=== PATIENT | male | born 1965 | race Caucasian/White ===

== ENCOUNTER 2016-11-24 11:56 | Inpatient (IN) ==
[2016-11-24] MEDS ORDERED: fentaNYL 100 MCG/2 ML VIAL IV STA (12:28)
[2016-11-24] MEDS ORDERED: ONDANSETRON 4 MG/2 ML VIAL IV STA (12:28)
--- NOTE | 2016-11-24 12:37 | Emergency Department Note ---
Marty Hirsch Gwan, am scribing for, and in the presence of, Jhony Menard MD 12:32 . Sailaja Hirsch James D, MD, personally performed the services described in this documentation, ascribed by Saurabh Ferguson in my presence, and it is both accurate and complete 237 . Arrival - Arrival Chief Complaint: Wound/Laceration Stated Complaint: wound ED Nursing Triage Note: Brought in by EMS--patient has chronic sacral decubitus ulcers, states he "felt a pop" last night. Moderate purulent drainage noted to wound. Mode of Arrival: Stretcher Limitations: No Limitations Source: Patient, Old Records Reviewed, RN Notes Reviewed - History of Present Illness HPI Narrative: Patient is a 51 y/o male, with a hx of T12/ L1 paraplegic, who presents to the ED via EMS with a c/o moderate purulent draining decubitus ulcer. Patient stated that he felt a "pop" and that it felt as if he had drainage but was unable to see any drainage on his pad. He confirmed that Dr. Lu performed his surgeries. Patient is followed by Dr. Hollingsworth. During exam, it was determined that has a significant amount of drainage and an abscess to the Perirectal area. Onset (ago): hour(s) Consistency: constant Severity: moderate Allergies/Adverse Reactions: Allergies Allergy/AdvReac Type Severity Reaction Status Date / Time Sulfa (Sulfonamide AdvReac Intermediate Nose Bleed Verified 04/06/16 07:11 Antibiotics) Home Medications: Home Medications Medication Instructions Recorded Confirmed Type HYDROcodone/ACETAMIN 7.5-325 1 tablet PO Q4H PRN 04/05/16 11/24/16 History [[place] 7.5-325] clonazePAM [Clonazepam] 1 mg PO BEDTIME 04/05/16 11/24/16 History Review of System - Review of System 12 point system: reviewed and no additional remarkable complaints except as stated - Review of System Constitutional: Absent: chills, fever Eyes: Absent: discharge, pain Head/Ears/Nose/Throat: Absent: earache Respiratory: Absent: cough Cardiovascular: Absent: chest pain Medical,Surgical,& Family Hx - Medical History Cardio: History of: Hypertension, PVD No history of: CAD, Cardiovascular Problems Psychological: History of: Depression No history of: Anxiety Disorders Neurology: No history of: Seizures Endocrine: No history of: Diabetes Mellitus (IDDM), Thyroid Disorder Respiratory: No history of: COPD Genitourinary: History of: Recurring Urinary Tract Infections (conte cath) Gastrointestinal: History of: GI Problems (colostomy) Musculoskeletal: History of: Amputation (bilateral AKA), Back/Neck Problems (T- 12 L-1 Fx paraplegic) Hematology: History of: Anemia No history of: Blood Disorders Other: History of: Miscellaneous Medical Problems (T12-L1 paraplegia) - Surgical History Thoracic Surgeries: Patient denies;: Organ Transplant Abdominal Surgeries: Surgical HX of: Abdominal Surgery, Hernia Repair Patient denies: Appendectomy, Cholecystectomy Orthopedic Surgeries: Surgical HX of;: Orthopedic Surgery (rt hip decortication) , Spinal Surgery - Family History Family History: Reports;: Family Diabetes (brother), Family Hypertension - Social History Smoking Status: Never smoker Frequency of Alcohol Use: None Type of Drug Use: None Exam Physical Examination: GENERAL: This is a white male with T12/L1 parapalegic. VITAL SIGNS: HEENT: Head is normocephalic and atraumatic. Pupils are equally round and reactive to light. Extraocular movement are intact. Oropharynx is benign with moist mucous membranes. NECK: Neck is soft and supple without tenderness. There are no masses. There is no lymphadenopathy. LUNGS: Lungs are clear to auscultation bilaterally. Chest rises symmetrically. There is no chest wall tenderness. CV: Heart is regular rate and rhythm without murmurs, rubs, or gallops. ABDOMEN: Abdomen is soft, non-tender to palpation. There are no abnormal masses palpated. There is no organomegaly. Bowel sounds are present and active. SKIN: Skin is warm and dry. No rash. EXTREMITIES: Patient has full range of motion without tenderness. There is no pedal edema. NEUROLOGIC: Awake, alert, and oriented x4. Cranial nerves II through XII are grossly intact. There are no motorsensory deficits. PSYCHIATRIC: Normal affect. Normal mood. Patient has a right hip disarticulation and right BKA with a obvious perirectal abscess with purulent drainage. Vital Signs: Vital Signs Temperature 98.2 F 11/24/16 12:00 Pulse Rate 106 H 11/24/16 12:00 Respiratory Rate 18 11/24/16 12:00 Blood Pressure 126/75 11/24/16 12:00 O2 Sat by Pulse Oximetry 97 11/24/16 12:00 Course Course Narrative: Patient will be referred to Dr. Link while in ED. Patient was administered Zosyn while in ED after cultures were collected. Results - Labs CBC & BMP: 11/24/16 12:42 11/24/16 12:42 Lab Results: I have reviewed the patients labs Labs: Laboratory Tests 11/24/16 12:42 WBC 8.5 RBC 4.05 Hgb 10.0 L Hct 33.1 L MCV 81.7 L MCH 25 L MCHC 30.2 L Plt Count 431 H MPV 8.7 L Lymph % (Auto) 20.4 L Laboratory Tests 11/24/16 12:42 Sodium 137 Potassium 4.6 Chloride 109 H Carbon Dioxide 22 BUN 23 H Creatinine 1.20 Calcium 8.4 L ALT 10 L Albumin 2.2 L Globulin 5.5 H Albumin/Globulin Ratio 0.4 L - EKG EKG results: interpreted by ERMD - Impressions EKG: Normal sinus rhythm with rate of 95, T-wave inversion anteriorly and laterally with inverted T waves possibly ischemic change. Normal axis. - Diagnostic Findings Procedure: Chest x-ray: image reviewed by me (Elevated left hemidiaphragm, no infiltrate, no pleural effusions.) Disposition Clinical Impression: Perirectal abscess, T12 paraplegia, Nicotine addiction, Sacral decubitus ulcer , stage III Case discussed with: patient Disposition: Still a Patient Condition: Stable Time of Disposition: 12:38
--- NOTE | 2016-11-24 12:46 | XRay Report ---
Exam: XR chest 1V portable Date: 11/24/2016 12:26 PM Indication: Paraplegia Comparison: 03/22/2016 Technical: AP portable Findings: There is abnormal of the left-sided PICC line. There is elevation left hemidiaphragm. No obvious consolidations present. Mild thickening of the minor fissure is present. Mediastinum is otherwise intact. Mild dextroscoliosis and surgical changes in the lower thoracolumbar junction. Impression: 1. Removal of the left-sided PICC line 2. Minimal thickening of the minor fissure which is chronic 3. Resolution of atelectatic change infiltrate or effusion left base. 4. Previous surgery thoracolumbar junction with metallic plates and screws suspected PROCEDURE INTERPRETED AT [facility] DEPARTMENT OF RADIOLOGY Final Report Signed by: Dr. Sergey Russell
[2016-11-24 12:51] LABS: Basophils % 0.2 % (0.0-0.8); Eosinophils # 0.1 10*3/uL (0.0-0.87); Eosinophils % 0.9 % (0.00-10.9); Hematocrit 33.1 VOL% (42.0-52.0); Immature Granulocytes % 0.6 %; Immature Granulocytes Absolute 0.05 #; Lymphocytes # 1.7 10*3/uL (1.4-4.0); Lymphocytes % 20.4 % (21.2-54.2); Mean Corpuscular HGB Conc 30.2 GM/DL (32-36); Mean Corpuscular Hemoglobin 25 PG (27-34); Mean Corpuscular Volume 81.7 FL (87-102); Mean Platelet Volume 8.7 FL (9.6-12.0); Monocytes # 0.4 10*3/uL (0.11-0.8); Monocytes % 4.7 % (1.7-12.7); Neutrophils # 6.2 10*3/uL (1.4-7.4); Neutrophils % 73.2 % (38.7-73.9); Platelet Count 431 T/CUMM (130-400); Red Blood Count 4.05 MC/CUMM (3.8-5.5); Red Cell Distribution Width 16.4 % (9.3-17.3); White Blood Count 8.5 T/CUMM (4-12)
--- NOTE | 2016-11-24 12:59 | EKG Report ---
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
[2016-11-24] MEDS ORDERED: PIPERACILLIN/TAZOBACTAM 3,375 MG in SODIUM CHLORIDE 0.9% 100 ML IV STA (13:09)
[2016-11-24] MEDS ORDERED: PIPERACILLIN/TAZOBACTAM 3,375 MG VIAL IV ONE (13:13)
[2016-11-24] MEDS ORDERED: ONDANSETRON 4 MG/2 ML VIAL ONE (13:13)
[2016-11-24] MEDS ORDERED: fentaNYL 100 MCG/2 ML VIAL ONE (13:13)
[2016-11-24] MEDS: SODIUM CHLORIDE 0.9% 1,000 ML IV SCH (13:18)
[2016-11-24 13:25] LABS: Alanine Aminotransferase 10 U/L (16-61); Albumin 2.2 G/DL (3.4-5.0); Alkaline Phosphatase 108 U/L (45-117); Aspartate Amino Transferase 7 U/L (0-37); Bilirubin,Total < 0.39 MG/DL (0.2-1.0); Blood Urea Nitrogen 23 MG/DL (7-18); Calcium 8.4 MG/DL (8.5-10.1); Glucose 86 MG/DL (74-106); Osmolality,Calculated 275.8 MOS/KG (273-304); Potassium 4.6 MMOL/L (3.5-5.1); Sodium 137 MMOL/L (136-145); Total Protein 7.7 G/DL (6.4-8.3)
--- NOTE | 2016-11-24 13:32 | General Surg History&Physical ---
Assessment and Plan - Time spent with patient Time spent with patient: Greater than 30 minutes (1) Decubitus ulcer, stage 4 with infection Status: Acute Assessment and plan: Impression: Right ischial decubitus ulcer stage IV with drainage Plan: Surgical debridement Current Visit: No (2) Paraplegia Status: Chronic Assessment and plan: Impression: Paraplegia Stable Current Visit: No (3) History of disarticulation of left hip Status: Acute Assessment and plan: Hip disarticulation with flap closure Current Visit: Yes (4) History of disarticulation of right hip Status: Acute Assessment and plan: Impression hip disarticulation with flap closure Current Visit: Yes History of Present Illness Chief complaint: Initial ulcer draining clear looking fluid History of present illness: Mr. Tate is a 51 year old male white who is been a paraplegic came in at one point with significant peripheral vascular disease from smoking as well as necrotizing fasciitis. He apparently has undergone a bilateral hip disarticulation with flap closure has been followed by Dr. Hollingsworth in the wound center. Came in today because of the sudden onset of drainage from what looks like a right initial ulcer. He is concerned that would might be draining urine since his urine bag has not shown any drainage since the onset of this drainage. Will need surgery for debridement of some of the necrotic tissue to send this area but will get some scans see if it shows anything to suggest any drainage from the urinary system. Home Medications Medication Instructions Recorded Confirmed Type HYDROcodone/ACETAMIN 7.5-325 1 tablet PO Q4H PRN 04/05/16 11/24/16 History [[place] 7.5-325] clonazePAM [Clonazepam] 1 mg PO BEDTIME 04/05/16 11/24/16 History Allergies Allergy/AdvReac Type Severity Reaction Status Date / Time Sulfa (Sulfonamide AdvReac Intermediate Nose Bleed Verified 04/06/16 07:11 Antibiotics) Medical,Surgical,& Family Hx - Medical History Cardio: History of: Hypertension, PVD No history of: CAD, Cardiovascular Problems Psychological: History of: Depression No history of: Anxiety Disorders Neurology: No history of: Seizures Endocrine: No history of: Diabetes Mellitus (IDDM), Thyroid Disorder Respiratory: No history of: COPD Genitourinary: History of: Recurring Urinary Tract Infections (conte cath) Gastrointestinal: History of: GI Problems (colostomy) Musculoskeletal: History of: Amputation (bilateral AKA), Back/Neck Problems (T- 12 L-1 Fx paraplegic) Hematology: History of: Anemia No history of: Blood Disorders Other: History of: Miscellaneous Medical Problems (T12-L1 paraplegia) - Surgical History Thoracic Surgeries: Patient denies;: Organ Transplant Abdominal Surgeries: Surgical HX of: Abdominal Surgery, Hernia Repair Patient denies: Appendectomy, Cholecystectomy Orthopedic Surgeries: Surgical HX of;: Orthopedic Surgery (rt hip decortication) , Spinal Surgery - Family History Family History: Reports;: Family Diabetes (brother), Family Hypertension - Social History Smoking Status: Never smoker Frequency of Alcohol Use: None Type of Drug Use: None Exam - Constitutional Vitals: Period Temp Pulse Resp BP Sys/Vera Pulse Ox Last 24 Hr 98.2 F-98.2 F 106-106 18-18 126-126/75-75 97 General appearance: mild distress - Head Head exam: Present: normal inspection - ENT ENT exam: Present: normal exam - Neck Neck exam: Present: normal inspection - Respiratory Respiratory exam: Present: clear to auscultation bilaterally, rales - Cardiovascular Cardiovascular exam: Present: RRR - GI/Abdominal GI/Abdominal exam: Present: distended, hypoactive bowel sounds, soft, other ( Colostomy left lower quadrant) - Extremities Exam Extremities exam: Present: other (Bilateral amputee with this disarticulation of the hips. Has a large open wound of the right ischeal area with necrotic fatty tissue hanging out of this wound bed at this time and sort of a clear serous type of drainage. Marked undermining and deep wound going into this area towards the issue him that can be easily palpated.) - Back Exam Back exam: Present: normal inspection - Neurological Exam Neurological exam: Present: alert, oriented X3, CN II-XII intact - Skin Skin exam: Present: normal color, warm, dry 12 point system: reviewed and no additional remarkable complaints except as stated Results - Labs CBC & BMP: 11/24/16 12:42 11/24/16 12:42 Lab Results: I have reviewed the past 24 hour labs
--- NOTE | 2016-11-24 13:55 | XRay Report ---
XR pelvis AP 1 or 2 Views Clinical Information: Sacral decubitus, right hip disarticulation Comparison: Prior radiograph dated 03/07/2016 Findings: There has been complete surgical removal/disarticulation at the right hip joint. The left hip is grossly intact with no evidence of acute fracture or dislocation. There are prominent areas of decreased bone deposition at the inferior pubic ramus bilaterally, which is similar to slightly progressed from prior. There is also prominent soft tissue thickening near the lower pelvis/pubic area possibly representing soft tissue ulcerations.. Impression: Soft tissue irregularity near the lower pelvis may represent focal ulcerations is noted in the history. No acute osseous abnormality. PROCEDURE INTERPRETED AT [facility] DEPARTMENT OF RADIOLOGY Final Report Signed by: Alonso Ray
--- NOTE | 2016-11-24 14:41 | CT Report ---
CT abdomen pelvis w con Indication: Sacral decubitus ulceration, right ischial ulcer possibly draining urine Comparison: Prior CT 05/06/2015. Technique: CT of the abdomen and pelvis was performed following administration of intravenous contrast. Coronal and sagittal reformatted images were additionally created and submitted for review. The total DLP is 1199 mGy*cm. Dose reduction: This CT exam was performed using one or more of the following dose reduction techniques: Automated exposure control, automated adjustment of the mA and/or KV according to patient size, or use of iterative reconstruction technique. Findings: Very minimal posterior basilar dependent atelectatic changes are noted bilaterally. Lung bases are otherwise clear. There is no pleural or pericardial effusion. ABDOMEN: Liver/Gallbladder: No abnormal enhancing hepatic lesions. No biliary ductal dilatation or gallstones. Portal vein is patent. Previously questioned liver lesion within the right lobe on image 2015 study is not identified on today's study and may have been artifactual. Spleen: No acute findings. Pancreas: No acute findings. Adrenals: Within normal limits in appearance. Kidneys: Both kidneys demonstrate large staghorn calculi within the collecting systems but no evidence of significant hydronephrosis or hydroureter. There is also suggestion of mild uroepithelial enhancement and periureteral fat stranding about the left ureter, which is similar to the 2015 study and otherwise indeterminant. Staghorn calculi within both renal collecting systems appears essentially unchanged from prior. There is also large cystic lesions primarily within the left kidney which appear stable from prior. Bowel/mesentery: Small bowel is nondilated. There is no free fluid/air within the abdomen. Left lower quadrant colostomy is noted in place. There is no mesenteric adenopathy. Retroperitoneum: No evidence of aortic aneurysm or significant retroperitoneal adenopathy. 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 PELVIS: Bladder thickening is noted. There is also prominent air within the bladder, which may be related to ongoing infection or recent instrumentation. Marked inflammatory changes are noted within the base of the penis and ischial soft tissues concerning for active cellulitis. Aggressive fasciitis changes (Liane's gangrene) cannot be excluded radiographically. On sagittal images, a fluid/air pocket measuring up to 3 cm maximum dimension is noted along the inferior margin of the base of the penis. On delayed images, there is evidence of intravenous contrast within the bladder and the defect along the left ischiopubic soft tissues, compatible with direct vesicocutaneous fistula. BONES: Right hip disarticulation postsurgical changes noted. Left hip is grossly intact. No acute or suspicious osseous lesions are identified. Metallic rods noted within the lower thoracic/upper lumbar spine. IMPRESSION: 1. Extensive soft tissue abnormality within the region of the pubic symphysis and ischio rectal soft tissues with marked cellulitis and abscess/air noted along the base of the penis and into the bladder. 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 2. Similar large staghorn calculi within both kidneys with no evidence of obstructive uropathy at this time. 3. 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 Critical findings discussed with Dr. Link via telephone at approximately 2:38 PM on the day of the examination. 11/24/2016 1:57 PM PROCEDURE INTERPRETED AT [facility] DEPARTMENT OF RADIOLOGY Final Report Signed by: Alonso Ray
[2016-11-24] MEDS ORDERED: ceFAZolin 2,000 MG in PREMIX 1 EACH IV ONE (14:44)
[2016-11-24] MEDS ORDERED: ALUMINUM/MAGNES/SIMETH MAX STR 30 ML UDCUP PO PRN (14:44)
[2016-11-24] MEDS ORDERED: ACETAMINOPHEN 325 MG TABLET PO PRN ×2 (14:44)
--- NOTE | 2016-11-24 19:34 | Urology Consultation ---
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. He is quite beyond what I can do to help him. Current Visit: Yes History of Present Illness - Data of Consult Patient: new to practice Consult date: 11/24/16 Requesting Physician: Puneet Link - Consult Narrative Reason for consult: Fistula History of present illness: Mr. Tate is a 51 year old male who I had seen about 5 years ago he had some type of urinary cutaneous fistula. I referred him to Dr. Artis Valdivia and has had reconstructive surgery. He now comes in with posterior wound and apparently urine is draining from this. Unfortunately Dr. Valdivia has left the state. This patient unfortunately is a very complicated case. Beyond what I can help him with. He needs to go to [facility]. CC: Puneet Link MD - Home Medications and Allergies Home Medications: Home Medications Medication Instructions Recorded Confirmed Type HYDROcodone/ACETAMIN 7.5-325 1 tablet PO Q4H PRN 04/05/16 11/24/16 History [[place] 7.5-325] clonazePAM [Clonazepam] 1 mg PO BEDTIME 04/05/16 11/24/16 History Allergies/Adverse Reactions: Allergies Allergy/AdvReac Type Severity Reaction Status Date / Time Sulfa (Sulfonamide AdvReac Intermediate Nose Bleed Verified 04/06/16 07:11 Antibiotics) Exam - Constitutional Vitals: Period Temp Pulse Resp BP Sys/Vera Pulse Ox Last 24 Hr 98.2 F-98.7 F 94-106 18-19 110-127/60-91 97-100 Results - Labs CBC & BMP: 11/24/16 12:42 11/24/16 12:42
[2016-11-24] MEDS: DOCUSATE SODIUM 100 MG CAPSULE PO SCH (20:14)
[2016-11-24] MEDS: clonazePAM 0.5 MG TABLET PO SCH (20:14)
[2016-11-24] MEDS: PIPERACILLIN/TAZOBACTAM 3,375 MG in SODIUM CHLORIDE 0.9% 100 ML IV SCH (20:15)
[2016-11-24] MEDS: HYDROmorphone 2 MG/1 ML VIAL IV PRN (21:41)
[2016-11-25] MEDS: HYDROmorphone 2 MG/1 ML VIAL IV PRN ×3 (02:00→15:45)
[2016-11-25 05:11] LABS: Basophils % 0.3 % (0.0-0.8); Eosinophils # 0.1 10*3/uL (0.0-0.87); Eosinophils % 1.9 % (0.00-10.9); Hemoglobin 9.1 GM/DL (14.0-18.0); Immature Granulocytes % 0.6 %; Immature Granulocytes Absolute 0.04 #; Lymphocytes # 1.6 10*3/uL (1.4-4.0); Lymphocytes % 23.3 % (21.2-54.2); Mean Corpuscular HGB Conc 30.3 GM/DL (32-36); Mean Corpuscular Hemoglobin 25 PG (27-34); Mean Corpuscular Volume 81.1 FL (87-102); Mean Platelet Volume 8.9 FL (9.6-12.0); Monocytes # 0.7 10*3/uL (0.11-0.8); Monocytes % 10.1 % (1.7-12.7); Neutrophils # 4.4 10*3/uL (1.4-7.4); Neutrophils % 63.8 % (38.7-73.9); Platelet Count 412 T/CUMM (130-400); Red Cell Distribution Width 16.5 % (9.3-17.3); White Blood Count 6.9 T/CUMM (4-12)
[2016-11-25] MEDS: PIPERACILLIN/TAZOBACTAM 3,375 MG in SODIUM CHLORIDE 0.9% 100 ML IV SCH ×3 (05:13→20:34)
[2016-11-25 06:16] LABS: Calcium 8.3 MG/DL (8.5-10.1); Magnesium 2.1 MG/DL (1.8-2.4); Osmolality,Calculated 281.4 MOS/KG (273-304); Potassium 4.7 MMOL/L (3.5-5.1)
[2016-11-25 07:32] LABS: Band Neutrophils 1 % (0-10); Lymphocytes 25 % (20-55); Segmented Neutrophils 64 % (50-85); Total Cells Counted 100
[2016-11-25 07:33] LABS: Hypochromasia 1+; Platelet Estimate Increased
[2016-11-25] MEDS: SODIUM CHLORIDE 0.9% 1,000 ML IV SCH ×4 (08:26→23:10)
[2016-11-25] MEDS: DEXTROSE 5% NACL 0.45% 1,000 ML IV SCH ×3 (08:26→15:48)
[2016-11-25] MEDS: ENOXAPARIN 40 MG/0.4 ML SYRINGE SUBCUT SCH (09:14)
[2016-11-25] MEDS: PANTOPRAZOLE 40 MG TABLET PO SCH (09:15)
[2016-11-25] MEDS: DOCUSATE SODIUM 100 MG CAPSULE PO SCH ×3 (09:15→20:33)
--- NOTE | 2016-11-25 13:29 | General Surgery Progress Note ---
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 The ulcer is unchanged there is still some necrotic tissue that is hanging out one portion of it. Patient had refused any surgery because he wanted to be transferred to [facility] this patient because of his bladder problem. At this point will start working on trying to get him transferred but this may not occur until Monday. 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 Patient CT scan revealed a fistula from the neck of the bladder out through this area of the ischial ulcer. Dr. An was consulted on this situation he did not feel like that he could manage this effectively for the patient at this time and felt that he needed to be transferred to [facility] for better evaluation and treatment. Patient desired to have the S and even the office, debride this ulcer he refused any surgery at this time morning to be transferred. We are working on arrangements to try to get him transferred at this time but it may be Monday for we can get this accomplished. Current Visit: Yes Subjective Patient reports: Present: afebrile, other (Patient has refused any surgery to the initial area to debride some necrotic tissue today.) Exam - Constitutional Vitals: Period Temp Pulse Resp BP Sys/Vera Pulse Ox Last 24 Hr 97.9 F-99.1 F 89-105 16-22 91-123/55-79 95-100 General appearance: mild distress - Head Head exam: Present: normal inspection - ENT ENT exam: Present: normal exam - Neck Neck exam: Present: normal inspection - Respiratory Respiratory exam: Present: rales - Cardiovascular Cardiovascular exam: Present: RRR - GI/Abdominal GI/Abdominal exam: Present: normal bowel sounds, soft - Extremities Exam Extremities exam: Present: other (None) - Back Exam Back exam: Present: other (Initial area with open wound present and some necrotic fatty tissue present and good bit of drainage still exist here.) - Neurological Exam Neurological exam: Present: alert, oriented X3, CN II-XII intact - Skin Skin exam: Present: normal color, warm, dry Results - Labs CBC & BMP: 11/25/16 04:39 11/25/16 04:39 Lab Results: I have reviewed the past 24 hour labs Quality Measures - VTE Contraindication to Mechanical VTE Prophylaxis: Bilateral Above the Knee Amputations
[2016-11-25] MEDS: SODIUM HYPOCHLORITE 0.25% IRRIG 473 ML BOTTLE TOP SCH (17:02)
[2016-11-25] MEDS: clonazePAM 0.5 MG TABLET PO SCH (20:28)
[2016-11-26] MEDS: DEXTROSE 5% NACL 0.45% 1,000 ML IV SCH ×3 (00:25→16:23)
[2016-11-26] MEDS: HYDROmorphone 2 MG/1 ML VIAL IV PRN ×5 (00:26→20:23)
[2016-11-26] MEDS: PIPERACILLIN/TAZOBACTAM 3,375 MG in SODIUM CHLORIDE 0.9% 100 ML IV SCH ×3 (04:54→20:26)
[2016-11-26] MEDS: SODIUM CHLORIDE 0.9% 1,000 ML IV SCH ×3 (05:04→22:29)
--- NOTE | 2016-11-26 08:22 | General Surgery Progress Note ---
Assessment and Plan (1) Decubitus ulcer, stage 4 with infection Status: Acute Assessment and plan: Continue local wound care and antibiotics. Apparently being transferred to [facility] when a bed is available. Current Visit: No Subjective Patient reports: Present: no new complaints Narrative: Tolerating diet. Patient has no current complaints. Exam - Constitutional Vitals: Period Temp Pulse Resp BP Sys/Vera Pulse Ox Last 24 Hr 96.8 F-98.6 F 73-105 16-20 90-108/56-68 91-98 General appearance: no acute distress - Respiratory Respiratory exam: Present: clear to auscultation bilaterally - Cardiovascular Cardiovascular exam: Present: RRR - GI/Abdominal GI/Abdominal exam: Present: soft - Back Exam Back exam: Present: other (Sacral ulcer is clean. He has some drainage from an open wound just below the left buttock. It is foul-smelling.) Results - Labs CBC & BMP: 11/25/16 04:39 11/25/16 04:39 Quality Measures - VTE Contraindication to Mechanical VTE Prophylaxis: Bilateral Above the Knee Amputations
[2016-11-26] MEDS: PANTOPRAZOLE 40 MG TABLET PO SCH (08:24)
[2016-11-26] MEDS: DOCUSATE SODIUM 100 MG CAPSULE PO SCH ×2 (08:24→22:29)
[2016-11-26] MEDS: ENOXAPARIN 40 MG/0.4 ML SYRINGE SUBCUT SCH (08:24)
[2016-11-26] MEDS: SODIUM HYPOCHLORITE 0.25% IRRIG 473 ML BOTTLE TOP SCH (08:25)
[2016-11-26] MEDS: ONDANSETRON 4 MG/2 ML VIAL IV PRN (19:33)
[2016-11-26] MEDS: clonazePAM 0.5 MG TABLET PO SCH (20:25)
[2016-11-27] MEDS: HYDROmorphone 2 MG/1 ML VIAL IV PRN ×6 (00:30→23:57)
[2016-11-27] MEDS: DEXTROSE 5% NACL 0.45% 1,000 ML IV SCH ×5 (00:38→22:31)
[2016-11-27] MEDS: PIPERACILLIN/TAZOBACTAM 3,375 MG in SODIUM CHLORIDE 0.9% 100 ML IV SCH ×2 (04:53→15:33)
[2016-11-27] MEDS: SODIUM CHLORIDE 0.9% 1,000 ML IV SCH ×3 (06:29→21:04)
[2016-11-27] MEDS: PANTOPRAZOLE 40 MG TABLET PO SCH (09:02)
[2016-11-27] MEDS: ENOXAPARIN 40 MG/0.4 ML SYRINGE SUBCUT SCH (09:02)
[2016-11-27] MEDS: DOCUSATE SODIUM 100 MG CAPSULE PO SCH ×2 (09:08→20:09)
[2016-11-27] MEDS: SODIUM HYPOCHLORITE 0.25% IRRIG 473 ML BOTTLE TOP SCH (12:21)
--- NOTE | 2016-11-27 12:50 | General Surgery Progress Note ---
Assessment and Plan (1) Decubitus ulcer, stage 4 with infection Status: Acute Assessment and plan: Continue local wound care and antibiotics. MRSE and blood culture. Will add vancomycin until sensitivities are back. Apparently being transferred to [facility] when a bed is available. Current Visit: No Subjective Patient reports: Present: no new complaints Exam - Constitutional Vitals: Period Temp Pulse Resp BP Sys/Vera Pulse Ox Last 24 Hr 96.4 F-98.1 F 76-92 15-20 112-126/63-78 94-99 General appearance: no acute distress - Head Head exam: Present: normocephalic - Neck Neck exam: Present: normal inspection - Respiratory Respiratory exam: Present: clear to auscultation bilaterally - Cardiovascular Cardiovascular exam: Present: RRR - GI/Abdominal GI/Abdominal exam: Present: soft - Back Exam Back exam: Present: other (Continued foul-smelling drainage from the right lower buttock wound.) Results - Labs CBC & BMP: 11/25/16 04:39 11/25/16 04:39 Lab Results: I have reviewed the past 24 hour labs Quality Measures - VTE Contraindication to Mechanical VTE Prophylaxis: Bilateral Above the Knee Amputations
[2016-11-27] MEDS: VANCOMYCIN INJ 1,250 MG in SODIUM CHLORIDE 0.9% 250 ML IV SCH (13:42)
[2016-11-27] MEDS: clonazePAM 0.5 MG TABLET PO SCH (21:05)
[2016-11-27] MEDS: ONDANSETRON 4 MG/2 ML VIAL IV PRN (23:55)
[2016-11-28] MEDS: SODIUM CHLORIDE 0.9% 1,000 ML IV SCH ×2 (05:30→12:45)
[2016-11-28] MEDS: PIPERACILLIN/TAZOBACTAM 3,375 MG in SODIUM CHLORIDE 0.9% 100 ML IV SCH ×3 (05:31→21:14)
[2016-11-28] MEDS: DEXTROSE 5% NACL 0.45% 1,000 ML IV SCH ×3 (07:09→15:26)
[2016-11-28] MEDS: PANTOPRAZOLE 40 MG TABLET PO SCH (08:17)
[2016-11-28] MEDS: HYDROmorphone 2 MG/1 ML VIAL IV PRN ×4 (08:18→21:14)
[2016-11-28] MEDS: ENOXAPARIN 40 MG/0.4 ML SYRINGE SUBCUT SCH (08:18)
[2016-11-28] MEDS: DOCUSATE SODIUM 100 MG CAPSULE PO SCH ×2 (08:20→21:13)
[2016-11-28] MEDS: VANCOMYCIN INJ 1,250 MG in SODIUM CHLORIDE 0.9% 250 ML IV SCH (09:49)
[2016-11-28] MEDS: SODIUM HYPOCHLORITE 0.25% IRRIG 473 ML BOTTLE TOP SCH (09:50)
[2016-11-28] MEDS: ONDANSETRON 4 MG/2 ML VIAL IV PRN ×2 (11:25→21:20)
[2016-11-28] MEDS: clonazePAM 0.5 MG TABLET PO SCH (21:13)
[2016-11-29] MEDS: DEXTROSE 5% NACL 0.45% 1,000 ML IV SCH ×4 (00:01→23:27)
[2016-11-29] MEDS: HYDROmorphone 2 MG/1 ML VIAL IV PRN ×6 (01:25→22:14)
[2016-11-29] MEDS: VANCOMYCIN INJ 1,250 MG in SODIUM CHLORIDE 0.9% 250 ML IV SCH ×2 (02:45→20:53)
[2016-11-29 06:54] LABS: Albumin 2.1 G/DL (3.4-5.0); Calcium 8.4 MG/DL (8.5-10.1); Osmolality,Calculated 282.1 MOS/KG (273-304); Phosphorous 4.1 MG/DL (2.5-4.9); Potassium 4.8 MMOL/L (3.5-5.1)
[2016-11-29] MEDS: PIPERACILLIN/TAZOBACTAM 3,375 MG in SODIUM CHLORIDE 0.9% 100 ML IV SCH ×3 (07:03→21:59)
--- NOTE | 2016-11-29 07:19 | Event Note ---
11/28/2016 Have been unable to get anyone to accept patient in transfer at this time. will continue to try.
[2016-11-29] MEDS: ENOXAPARIN 40 MG/0.4 ML SYRINGE SUBCUT SCH (08:36)
[2016-11-29] MEDS: PANTOPRAZOLE 40 MG TABLET PO SCH (08:37)
--- NOTE | 2016-11-29 08:39 | General Surgery Progress Note ---
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 The ulcer is unchanged there is still some necrotic tissue that is hanging out one portion of it. Patient had refused any surgery because he wanted to be transferred to [place] this patient because of his bladder problem. At this point will start working on trying to get him transferred but this may not occur until Monday. 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 Patient CT scan revealed a fistula from the neck of the bladder out through this area of the ischial ulcer. Dr. An was consulted on this situation he did not feel like that he could manage this effectively for the patient at this time and felt that he needed to be transferred to [place] for better evaluation and treatment. Patient desired to have the S and even the office, debride this ulcer he refused any surgery at this time morning to be transferred. We are working on arrangements to try to get him transferred at this time but it may be Monday for we can get this accomplished. 11/29/2016 Patient continues to have urine drain through this ischeal wound. There is good character of the skin around it is still is got a moist at this time. Base of the ulcer looks fairly clean at all see necrotic tissue anymore and that that I saw at the admission but we are watching it carefully at this time. We have made several attempts to try to transfer him to [place] hard to [facility] without success. I will asked Dr. An to see if he can help us at this time. The other alternative would possibly be just an outpatient clinic visit if it is not to long out from the time of this discharge. Current Visit: Yes Subjective Patient reports: Present: no new complaints, afebrile Exam - Constitutional Vitals: Period Temp Pulse Resp BP Sys/Vera Pulse Ox Last 24 Hr 96.9 F-97.7 F 74-89 18-20 106-147/60-99 90-99 General appearance: mild distress - Head Head exam: Present: normal inspection - ENT ENT exam: Present: normal exam - Neck Neck exam: Present: normal inspection - Respiratory Respiratory exam: Present: rales - Cardiovascular Cardiovascular exam: Present: RRR - GI/Abdominal GI/Abdominal exam: Present: hypoactive bowel sounds, soft - Back Exam Back exam: Present: other (The right ischial wound is fairly clean at this point but continues to have a good bit of drainage from the urine and the fistula is present.) - Neurological Exam Neurological exam: Present: alert, oriented X3, CN II-XII intact - Skin Skin exam: Present: normal color, warm, dry Results - Labs CBC & BMP: 11/25/16 04:39 11/29/16 06:08 Lab Results: I have reviewed the past 24 hour labs Quality Measures - VTE Contraindication to Mechanical VTE Prophylaxis: Bilateral Above the Knee Amputations
[2016-11-29] MEDS: DOCUSATE SODIUM 100 MG CAPSULE PO SCH ×2 (09:07→21:09)
[2016-11-29] MEDS: SODIUM HYPOCHLORITE 0.25% IRRIG 473 ML BOTTLE TOP SCH (09:07)
--- NOTE | 2016-11-29 15:24 | Event Note ---
11/29/[address] Paredes at [facility]. His recommendation was for bilateral nephrostomy tubes and surgery later. Will discuss with patient and see what we can do.
[2016-11-29] MEDS: ONDANSETRON 4 MG/2 ML VIAL IV PRN ×2 (18:11→23:26)
[2016-11-29] MEDS: clonazePAM 0.5 MG TABLET PO SCH (20:53)
[2016-11-30] MEDS: PIPERACILLIN/TAZOBACTAM 3,375 MG in SODIUM CHLORIDE 0.9% 100 ML IV SCH ×3 (05:14→23:41)
[2016-11-30] MEDS: HYDROmorphone 2 MG/1 ML VIAL IV PRN ×5 (05:15→22:10)
[2016-11-30] MEDS: PANTOPRAZOLE 40 MG TABLET PO SCH (09:23)
[2016-11-30] MEDS: DOCUSATE SODIUM 100 MG CAPSULE PO SCH ×2 (09:23→22:11)
[2016-11-30] MEDS: ENOXAPARIN 40 MG/0.4 ML SYRINGE SUBCUT SCH (09:23)
[2016-11-30] MEDS: SODIUM HYPOCHLORITE 0.25% IRRIG 473 ML BOTTLE TOP SCH (09:24)
[2016-11-30] MEDS: DEXTROSE 5% NACL 0.45% 1,000 ML IV SCH ×2 (12:15→14:29)
[2016-11-30] MEDS: VANCOMYCIN INJ 1,250 MG in SODIUM CHLORIDE 0.9% 250 ML IV SCH (21:46)
[2016-11-30] MEDS: clonazePAM 0.5 MG TABLET PO SCH (21:46)
[2016-12-01] MEDS: HYDROmorphone 2 MG/1 ML VIAL IV PRN ×6 (02:04→22:12)
[2016-12-01] MEDS: DEXTROSE 5% NACL 0.45% 1,000 ML IV SCH ×3 (03:28→14:16)
[2016-12-01] MEDS: PIPERACILLIN/TAZOBACTAM 3,375 MG in SODIUM CHLORIDE 0.9% 100 ML IV SCH ×3 (06:03→23:30)
[2016-12-01] MEDS: PANTOPRAZOLE 40 MG TABLET PO SCH (09:47)
[2016-12-01] MEDS: ENOXAPARIN 40 MG/0.4 ML SYRINGE SUBCUT SCH (09:48)
[2016-12-01] MEDS: DOCUSATE SODIUM 100 MG CAPSULE PO SCH ×2 (09:48→22:11)
[2016-12-01] MEDS: SODIUM HYPOCHLORITE 0.25% IRRIG 473 ML BOTTLE TOP SCH (09:48)
[2016-12-01] MEDS: ONDANSETRON 4 MG/2 ML VIAL IV PRN (15:24)
--- NOTE | 2016-12-01 17:38 | General Surgery Progress Note ---
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 The ulcer is unchanged there is still some necrotic tissue that is hanging out one portion of it. Patient had refused any surgery because he wanted to be transferred to [place] this patient because of his bladder problem. At this point will start working on trying to get him transferred but this may not occur until Monday. 12/01/2016. Patient is stable in wound care is progressing at this time without any basic problems. Dr. An is indicated that he might try talking to somebody [facility] about taking this patient in dealing with his problems. I have not heard anything back from him at this time. Do not know what we are to go with this patient if I can find somebody to accept him or see him at some point in time. 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 Patient CT scan revealed a fistula from the neck of the bladder out through this area of the ischial ulcer. Dr. An was consulted on this situation he did not feel like that he could manage this effectively for the patient at this time and felt that he needed to be transferred to [place] for better evaluation and treatment. Patient desired to have the S and even the office, debride this ulcer he refused any surgery at this time morning to be transferred. We are working on arrangements to try to get him transferred at this time but it may be Monday for we can get this accomplished. 11/29/2016 Patient continues to have urine drain through this ischeal wound. There is good character of the skin around it is still is got a moist at this time. Base of the ulcer looks fairly clean at all see necrotic tissue anymore and that that I saw at the admission but we are watching it carefully at this time. We have made several attempts to try to transfer him to [place] is hard to [facility] without success. I will asked Dr. An to see if he can help us at this time. The other alternative would possibly be just an outpatient clinic visit if it is not to long out from the time of this discharge. Current Visit: Yes Subjective Patient reports: Present: no new complaints, afebrile Exam - Constitutional Vitals: Period Temp Pulse Resp BP Sys/Vera Pulse Ox Last 24 Hr 96.5 F-97.7 F 75-87 16-79 114-138/68-91 94-100 General appearance: mild distress - Head Head exam: Present: normal inspection - ENT ENT exam: Present: normal exam - Neck Neck exam: Present: normal inspection - Respiratory Respiratory exam: Present: rales - Cardiovascular Cardiovascular exam: Present: RRR - GI/Abdominal GI/Abdominal exam: Present: hypoactive bowel sounds, soft. Absent: distended - Extremities Exam Extremities exam: Present: other - Back Exam Back exam: Present: other (Right ischial ulcer looks clean at this point I do not see any necrotic tissue good bit of moisture in the area from the urine drainage.) - Neurological Exam Neurological exam: Present: alert, oriented X3, CN II-XII intact - Skin Skin exam: Present: normal color, warm, dry Results - Labs CBC & BMP: 11/25/16 04:39 11/29/16 06:08 Lab Results: I have reviewed the past 24 hour labs Quality Measures - VTE Contraindication to Mechanical VTE Prophylaxis: Bilateral Above the Knee Amputations
[2016-12-01] MEDS: clonazePAM 0.5 MG TABLET PO SCH (21:05)
[2016-12-01] MEDS: VANCOMYCIN INJ 1,250 MG in SODIUM CHLORIDE 0.9% 250 ML IV SCH (21:05)
[2016-12-02] MEDS: DEXTROSE 5% NACL 0.45% 1,000 ML IV SCH ×4 (01:26→22:20)
[2016-12-02 05:06] LABS: Basophils % 0.2 % (0.0-0.8); Eosinophils # 0.3 10*3/uL (0.0-0.87); Eosinophils % 4.8 % (0.00-10.9); Hematocrit 30.2 VOL% (42.0-52.0); Hemoglobin 8.8 GM/DL (14.0-18.0); Immature Granulocytes % 0.7 %; Immature Granulocytes Absolute 0.04 #; Mean Corpuscular HGB Conc 29.1 GM/DL (32-36); Mean Corpuscular Hemoglobin 24 PG (27-34); Mean Platelet Volume 9.9 FL (9.6-12.0); Monocytes # 0.4 10*3/uL (0.11-0.8); Monocytes % 6.6 % (1.7-12.7); Neutrophils # 3.2 10*3/uL (1.4-7.4); Neutrophils % 53.7 % (38.7-73.9); Platelet Count 247 T/CUMM (130-400); Red Blood Count 3.64 MC/CUMM (3.8-5.5); Red Cell Distribution Width 17.6 % (9.3-17.3); White Blood Count 5.9 T/CUMM (4-12)
[2016-12-02 05:30] LABS: Eosinophils 6 % (0-10); Hypochromasia 1+; Lymphocytes 40 % (20-55); Platelet Estimate Adequate; Segmented Neutrophils 51 % (50-85); Total Cells Counted 100
[2016-12-02 05:31] LABS: Ovalocytes Slight
[2016-12-02 05:34] LABS: Calcium 7.8 MG/DL (8.5-10.1); Magnesium 2.1 MG/DL (1.8-2.4); Potassium 4.3 MMOL/L (3.5-5.1)
[2016-12-02 05:43] LABS: Calcium 7.9 MG/DL (8.5-10.1); Potassium 4.3 MMOL/L (3.5-5.1)
[2016-12-02] MEDS ORDERED: CHLORHEXIDINE 4% SOLN 118 ML BOTTLE TOP ONE (07:56)
--- NOTE | 2016-12-02 08:03 | General Surgery Progress Note ---
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 The ulcer is unchanged there is still some necrotic tissue that is hanging out one portion of it. Patient had refused any surgery because he wanted to be transferred to [place] this patient because of his bladder problem. At this point will start working on trying to get him transferred but this may not occur until Monday. 12/01/2016. Patient is stable in wound care is progressing at this time without any basic problems. Dr. An is indicated that he might try talking to somebody [facility] about taking this patient in dealing with his problems. I have not heard anything back from him at this time. Do not know what we are to go with this patient if I can find somebody to accept him or see him at some point in time. 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 Patient CT scan revealed a fistula from the neck of the bladder out through this area of the ischial ulcer. Dr. An was consulted on this situation he did not feel like that he could manage this effectively for the patient at this time and felt that he needed to be transferred to [place] for better evaluation and treatment. Patient desired to have the S and even the office, debride this ulcer he refused any surgery at this time morning to be transferred. We are working on arrangements to try to get him transferred at this time but it may be Monday for we can get this accomplished. 11/29/2016 Patient continues to have urine drain through this ischeal wound. There is good character of the skin around it is still is got a moist at this time. Base of the ulcer looks fairly clean at all see necrotic tissue anymore and that that I saw at the admission but we are watching it carefully at this time. We have made several attempts to try to transfer him to [place] hard to [facility] without success. I will asked Dr. An to see if he can help us at this time. The other alternative would possibly be just an outpatient clinic visit if it is not to long out from the time of this discharge. 12/02/2016. Wounds on the patient's right ischial area continue to be clean and looks good without any unusual problems at this time. Continues to have good bit of drainage but there is no breakdown of the skin around the wound at this time. He has a colostomy in place because this area is right there at the angle area. At this point we are still trying to attempt to get him somewhere for care to the bladder fistula but have not been successful with [facility] at this time. Dr. An was going to try to call somebody to see if they would be willing to accept him but have not heard back from him at this time. His cultures are noted in his own to good antibiotics vancomycin and ampicillin is covering the organisms and will continue those for right now to we get something more definitive on his care. Do not feel like that we can send him out unless we have a plan for him to go somewhere and get this dealt with. Current Visit: Yes Subjective Patient reports: Present: no new complaints, afebrile Exam - Constitutional Vitals: Period Temp Pulse Resp BP Sys/Vera Pulse Ox Last 24 Hr 96.8 F-98.4 F 71-92 16-79 112-138/59-91 93-98 General appearance: mild distress - Head Head exam: Present: normal inspection - ENT ENT exam: Present: normal exam - Neck Neck exam: Present: normal inspection - Respiratory Respiratory exam: Present: clear to auscultation bilaterally, rales - Cardiovascular Cardiovascular exam: Present: RRR - GI/Abdominal GI/Abdominal exam: Present: hypoactive bowel sounds, soft. Absent: tenderness - Extremities Exam Extremities exam: Present: other - Back Exam Back exam: Present: other (The issue he will ulcer on the right is clean with no sign of any necrotic tissue present and continues to have a good bit of drainage. Sacral ulcer is clean with a good granulating base but no evidence of any breakdown in that area. No necrotic tissue present.) - Neurological Exam Neurological exam: Present: alert, oriented X3, CN II-XII intact - Skin Skin exam: Present: normal color, warm, dry Results - Labs CBC & BMP: 12/02/16 04:33 12/02/16 04:33 Lab Results: I have reviewed the past 24 hour labs Quality Measures - VTE Contraindication to Mechanical VTE Prophylaxis: Bilateral Above the Knee Amputations
[2016-12-02] MEDS: ENOXAPARIN 40 MG/0.4 ML SYRINGE SUBCUT SCH (09:51)
[2016-12-02] MEDS: PANTOPRAZOLE 40 MG TABLET PO SCH (09:53)
[2016-12-02] MEDS: DOCUSATE SODIUM 100 MG CAPSULE PO SCH ×2 (09:53→20:12)
[2016-12-02] MEDS: HYDROmorphone 2 MG/1 ML VIAL IV PRN ×4 (10:27→22:25)
[2016-12-02] MEDS: SODIUM HYPOCHLORITE 0.25% IRRIG 473 ML BOTTLE TOP SCH (11:30)
[2016-12-02] MEDS: PIPERACILLIN/TAZOBACTAM 3,375 MG in SODIUM CHLORIDE 0.9% 100 ML IV SCH ×3 (14:28→22:16)
--- NOTE | 2016-12-02 14:28 | XRay Report ---
Retrograde urethrogram Indication: Urethral fistula with perirectal abscess, bladder catheterization next Findings: Contrast injection 180 cc Cysto-Conray under fluoroscopy was performed with Dr. An present. Contrast extravasates from the urethra into the fistula. Dr. An passed a wire into the bladder and subsequently placed Mendiola catheter in good position. Fluoroscopy time 4 minutes 37 seconds Impression: Retrograde urethrogram as described above. PROCEDURE INTERPRETED AT [facility] DEPARTMENT OF RADIOLOGY Final Report Signed by: Dr. Leonardo Nunez
[2016-12-02] MEDS: OXYBUTYNIN 5 MG TABLET PO SCH ×2 (15:03→20:11)
[2016-12-02] MEDS ORDERED: HYDROmorphone 2 MG/1 ML VIAL IV ONE (15:17)
[2016-12-02] MEDS: VANCOMYCIN INJ 1,250 MG in SODIUM CHLORIDE 0.9% 250 ML IV SCH (20:12)
[2016-12-03] MEDS: HYDROmorphone 2 MG/1 ML VIAL IV PRN ×5 (02:19→19:33)
[2016-12-03] MEDS: DEXTROSE 5% NACL 0.45% 1,000 ML IV SCH ×3 (06:25→23:30)
[2016-12-03] MEDS: PIPERACILLIN/TAZOBACTAM 3,375 MG in SODIUM CHLORIDE 0.9% 100 ML IV SCH ×3 (06:29→22:50)
[2016-12-03] MEDS: DOCUSATE SODIUM 100 MG CAPSULE PO SCH ×2 (08:04→20:20)
[2016-12-03] MEDS: OXYBUTYNIN 5 MG TABLET PO SCH ×3 (10:55→20:20)
[2016-12-03] MEDS: PANTOPRAZOLE 40 MG TABLET PO SCH (10:55)
[2016-12-03] MEDS: ENOXAPARIN 40 MG/0.4 ML SYRINGE SUBCUT SCH (10:56)
--- NOTE | 2016-12-03 10:57 | General Surgery Progress Note ---
Assessment and Plan - Time spent with patient Time spent with patient: Less than 30 minutes (1) Stage IV ischial decubitus Status: Acute Assessment and plan: 51-year-old male with paraplegia and history of bilateral hip disarticulations admitted by Dr. Link with stage IV right ischial decubitus ulcer with drainage. Patient was also found to have a right urethrocutaneous fistula that Dr. An feels is too complicated to treat here. They are trying to get patient to [facility] or [facility] for further care. Patient's wounds are stable and clean at this time. Patient is afebrile and vital signs stable. Continue wound care orders per Dr. Link. Dr. Freeman has seen and examined patient for Dr. Link today. 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
--- NOTE | 2016-12-03 12:58 | Urology Progress Note ---
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 He is quite beyond what I can do to help him. Current Visit: Yes Urology - PN: Subj Interval history: [facility] is refusing to see the patient at this present time due to his decubiti and on the general surgery service. I actually talked to Dr. Ruano who would like some type of either nephrostomies a suprapubic tube. He was taken down to radiology and a retrograde urethrogram was obtained. At that time in radiology had a condom catheter that was on and the tape at the proximal part of the condom was taped very tight around the penis. I suspect that was causing obstruction and that led to the fistula. I related to the patient he just cannot do that anymore. Retrograde urethrogram was obtained and this reveals a fistula in the bulbar urethra about a centimeter in length. I am not sure how wide it is. I was able to thread a small open-ended catheter into the bladder under fluoroscopy. Through that catheter I was able to place a guidewire. Over the guidewire placed a [place] catheter that is in his bladder. He 7cc were put in the balloon. He tolerated this well. Hopefully this will help dry things up. He is to he will still need reconstruction and sooner later he needs to get over the University. Exam - Constitutional Vitals: Period Temp Pulse Resp BP Sys/Vera Pulse Ox Last 24 Hr 96.8 F-98.0 F 61-94 18-20 93-135/52-98 93-99 Results - Labs CBC & BMP: 12/02/16 04:33 12/02/16 04:33
--- NOTE | 2016-12-03 13:04 | Urology Progress Note ---
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 He is quite beyond what I can do to help him. Current Visit: Yes Urology - PN: Subj Interval history: Follow-up after catheter placement. The drainage from his perineum is much improved. He is tolerating the Mendiola. I have instructed the nurses that he keeps this Mendiola until he is seen by somebody who can reconstruct his urethra and we will keep him on generic Ditropan 5 mg 3 times a day. The patient is actually trying to make arrangements to see Dr. Artis Valdivia who has moved in [facility]. I told him that this probably will be difficult for him to do but if he can make arrangements that would ultimately be the best situation for him as Dr. Valdivia knows his situation the most. Exam - Constitutional Vitals: Period Temp Pulse Resp BP Sys/Vera Pulse Ox Last 24 Hr 96.8 F-98.0 F 61-94 18-20 93-135/52-98 93-99 Results - Labs CBC & BMP: 12/02/16 04:33 12/02/16 04:33
[2016-12-03] MEDS: SODIUM HYPOCHLORITE 0.25% IRRIG 473 ML BOTTLE TOP SCH (16:24)
[2016-12-03] MEDS: VANCOMYCIN INJ 1,250 MG in SODIUM CHLORIDE 0.9% 250 ML IV SCH (21:46)
[2016-12-04] MEDS: HYDROmorphone 2 MG/1 ML VIAL IV PRN ×6 (00:02→22:15)
[2016-12-04] MEDS: PIPERACILLIN/TAZOBACTAM 3,375 MG in SODIUM CHLORIDE 0.9% 100 ML IV SCH ×3 (06:10→21:44)
[2016-12-04] MEDS: DEXTROSE 5% NACL 0.45% 1,000 ML IV SCH ×4 (06:48→22:44)
[2016-12-04] MEDS ORDERED: VANCOMYCIN INJ 1,000 MG in SODIUM CHLORIDE 0.9% 250 ML IV SCH (09:00)
[2016-12-04] MEDS: OXYBUTYNIN 5 MG TABLET PO SCH ×3 (09:45→20:32)
[2016-12-04] MEDS: PANTOPRAZOLE 40 MG TABLET PO SCH (09:45)
[2016-12-04] MEDS: ENOXAPARIN 40 MG/0.4 ML SYRINGE SUBCUT SCH (09:45)
[2016-12-04] MEDS: DOCUSATE SODIUM 100 MG CAPSULE PO SCH ×2 (09:56→21:43)
[2016-12-04] MEDS: SODIUM HYPOCHLORITE 0.25% IRRIG 473 ML BOTTLE TOP SCH (10:45)
--- NOTE | 2016-12-04 11:00 | General Surgery Progress Note ---
Assessment and Plan (1) Decubitus ulcer, stage 4 with infection Status: Acute Assessment and plan: Impression: Fistula. Will continue local wound care. Improved since last week but no significant change since yesterday. Current Visit: No Subjective Patient reports: Present: no new complaints Exam - Constitutional Vitals: Period Temp Pulse Resp BP Sys/Vera Pulse Ox Last 24 Hr 97.3 F-98.1 F 57-89 18-19 104-134/53-81 95-98 General appearance: no acute distress - Head Head exam: Present: normocephalic - Neck Neck exam: Present: normal inspection - Respiratory Respiratory exam: Present: clear to auscultation bilaterally - Cardiovascular Cardiovascular exam: Present: RRR - GI/Abdominal GI/Abdominal exam: Present: soft - Neurological Exam Neurological exam: Present: alert, oriented X3 Speech: Present: normal - Skin Skin exam: Present: normal color Results - Labs CBC & BMP: 12/02/16 04:33 12/02/16 04:33 Lab Results: I have reviewed the past 24 hour labs Quality Measures - VTE Contraindication to Mechanical VTE Prophylaxis: Bilateral Above the Knee Amputations
--- NOTE | 2016-12-04 12:36 | Urology Progress Note ---
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 He is quite beyond what I can do to help him. 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 He is tolerating it. He is not having any spasms. He needs to stay on the Ditropan 3 times a day. I think the urology department will see him as an outpatient in their clinic. I am going to sign off. I will see him back as needed. Exam - Constitutional Vitals: Period Temp Pulse Resp BP Sys/Vera Pulse Ox Last 24 Hr 96.5 F-98.1 F 57-89 18-19 104-126/53-81 95-98 Results - Labs CBC & BMP: 12/02/16 04:33 12/02/16 04:33
[2016-12-05] MEDS: HYDROmorphone 2 MG/1 ML VIAL IV PRN ×5 (06:17→22:33)
[2016-12-05] MEDS: PIPERACILLIN/TAZOBACTAM 3,375 MG in SODIUM CHLORIDE 0.9% 100 ML IV SCH ×3 (06:20→21:08)
[2016-12-05] MEDS: DEXTROSE 5% NACL 0.45% 1,000 ML IV SCH ×2 (06:20→14:45)
--- NOTE | 2016-12-05 08:10 | General Surgery Progress Note ---
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 The ulcer is unchanged there is still some necrotic tissue that is hanging out one portion of it. Patient had refused any surgery because he wanted to be transferred to [place] this patient because of his bladder problem. At this point will start working on trying to get him transferred but this may not occur until Monday. 12/01/2016. Patient is stable in wound care is progressing at this time without any basic problems. Dr. An is indicated that he might try talking to somebody [facility] about taking this patient in dealing with his problems. I have not heard anything back from him at this time. Do not know what we are to go with this patient if I can find somebody to accept him or see him at some point in time. 12/05/2016. Also remains clean with good granulating tissue present. He does have a colostomy in place this ulcer is very close to the anus. 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 Patient CT scan revealed a fistula from the neck of the bladder out through this area of the ischial ulcer. Dr. An was consulted on this situation he did not feel like that he could manage this effectively for the patient at this time and felt that he needed to be transferred to [place] for better evaluation and treatment. Patient desired to have the S and even the office, debride this ulcer he refused any surgery at this time morning to be transferred. We are working on arrangements to try to get him transferred at this time but it may be Monday for we can get this accomplished. 11/29/2016 Patient continues to have urine drain through this ischeal wound. There is good character of the skin around it is still is got a moist at this time. Base of the ulcer looks fairly clean at all see necrotic tissue anymore and that that I saw at the admission but we are watching it carefully at this time. We have made several attempts to try to transfer him to [place] is hard to [facility] without success. I will asked Dr. An to see if he can help us at this time. The other alternative would possibly be just an outpatient clinic visit if it is not to long out from the time of this discharge. 12/02/2016. Wounds on the patient's right ischial area continue to be clean and looks good without any unusual problems at this time. Continues to have good bit of drainage but there is no breakdown of the skin around the wound at this time. He has a colostomy in place because this area is right there at the angle area. At this point we are still trying to attempt to get him somewhere for care to the bladder fistula but have not been successful with [facility] at this time. Dr. An was going to try to call somebody to see if they would be willing to accept him but have not heard back from him at this time. His cultures are noted in his own to good antibiotics vancomycin and ampicillin is covering the organisms and will continue those for right now to we get something more definitive on his care. Do not feel like that we can send him out unless we have a plan for him to go somewhere and get this dealt with. 12/05/2016. Drainage from the fistula is less now that Dr. An has placed a Mendiola catheter in position. At this point this opens up the opportunity that we can set up home health for his wound care and try to get him an appointment with urology at [facility] in clinic fashion to see if there is something more that they can do for this fistula problem on this patient. Current Visit: Yes Subjective Patient reports: Present: no new complaints, tolerating a regular diet, afebrile Exam - Constitutional Vitals: Period Temp Pulse Resp BP Sys/Vera Pulse Ox Last 24 Hr 96.5 F-98.1 F 61-80 16-20 104-120/53-81 94-98 General appearance: mild distress - Head Head exam: Present: normal inspection - ENT ENT exam: Present: normal exam - Neck Neck exam: Present: normal inspection - Respiratory Respiratory exam: Present: rales - Cardiovascular Cardiovascular exam: Present: RRR - GI/Abdominal GI/Abdominal exam: Present: hypoactive bowel sounds, soft, other (Colostomy in place and functioning well) - Extremities Exam Extremities exam: Present: other (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 Mendiola catheter in place) - Neurological Exam Neurological exam: Present: alert, oriented X3, CN II-XII intact - Skin Skin exam: Present: normal color, warm, dry Results - Labs CBC & BMP: 12/02/16 04:33 12/02/16 04:33 Lab Results: I have reviewed the past 24 hour labs Quality Measures - VTE Contraindication to Mechanical VTE Prophylaxis: Bilateral Above the Knee Amputations
[2016-12-05] MEDS: DOXYCYCLINE HYCLATE 100 MG CAPSULE PO SCH ×2 (09:34→21:08)
[2016-12-05] MEDS: OXYBUTYNIN 5 MG TABLET PO SCH ×3 (09:35→21:08)
[2016-12-05] MEDS: PANTOPRAZOLE 40 MG TABLET PO SCH (09:35)
[2016-12-05] MEDS: ENOXAPARIN 40 MG/0.4 ML SYRINGE SUBCUT SCH (09:36)
[2016-12-05] MEDS: DOCUSATE SODIUM 100 MG CAPSULE PO SCH ×2 (09:37→21:13)
[2016-12-05 11:04] LABS: Basophils % 0.4 % (0.0-0.8); Eosinophils # 0.2 10*3/uL (0.0-0.87); Hemoglobin 9.1 GM/DL (14.0-18.0); Immature Granulocytes % 0.8 %; Immature Granulocytes Absolute 0.06 #; Lymphocytes # 1.6 10*3/uL (1.4-4.0); Lymphocytes % 22.4 % (21.2-54.2); Mean Corpuscular HGB Conc 29.4 GM/DL (32-36); Mean Corpuscular Hemoglobin 25 PG (27-34); Mean Corpuscular Volume 84.2 FL (87-102); Mean Platelet Volume 9.4 FL (9.6-12.0); Monocytes # 0.5 10*3/uL (0.11-0.8); Monocytes % 7.1 % (1.7-12.7); Neutrophils # 4.9 10*3/uL (1.4-7.4); Neutrophils % 66.3 % (38.7-73.9); Platelet Count 325 T/CUMM (130-400); Red Blood Count 3.68 MC/CUMM (3.8-5.5); Red Cell Distribution Width 19.2 % (9.3-17.3); White Blood Count 7.3 T/CUMM (4-12)
[2016-12-05 11:44] LABS: Calcium 8.3 MG/DL (8.5-10.1); Osmolality,Calculated 283.1 MOS/KG (273-304); Potassium 4.5 MMOL/L (3.5-5.1)
[2016-12-05] MEDS: SODIUM HYPOCHLORITE 0.25% IRRIG 473 ML BOTTLE TOP SCH (13:19)
[2016-12-06] MEDS: DEXTROSE 5% NACL 0.45% 1,000 ML IV SCH ×5 (00:13→22:47)
[2016-12-06] MEDS: HYDROmorphone 2 MG/1 ML VIAL IV PRN ×5 (02:38→20:05)
[2016-12-06] MEDS: PIPERACILLIN/TAZOBACTAM 3,375 MG in SODIUM CHLORIDE 0.9% 100 ML IV SCH ×3 (06:55→22:47)
--- NOTE | 2016-12-06 08:15 | Event Note ---
12/06/2016. Patient is doing well at this time and we are anticipating discharge but trying to arrange a urology clinic follow-up on this patient before he goes to make sure we have everything in place. I am concerned that we will have this in place before he leaves it will have trouble getting set up later. Waiting on case management to be in touch with urology clinics [facility] and see if we can set up something.
[2016-12-06] MEDS: OXYBUTYNIN 5 MG TABLET PO SCH ×3 (09:21→20:05)
[2016-12-06] MEDS: PANTOPRAZOLE 40 MG TABLET PO SCH (09:21)
[2016-12-06] MEDS: DOXYCYCLINE HYCLATE 100 MG CAPSULE PO SCH ×2 (09:22→20:05)
[2016-12-06] MEDS: ENOXAPARIN 40 MG/0.4 ML SYRINGE SUBCUT SCH (09:22)
[2016-12-06] MEDS: DOCUSATE SODIUM 100 MG CAPSULE PO SCH ×2 (09:23→20:00)
[2016-12-06] MEDS: SODIUM HYPOCHLORITE 0.25% IRRIG 473 ML BOTTLE TOP SCH (15:16)
[2016-12-07] MEDS: HYDROmorphone 2 MG/1 ML VIAL IV PRN ×3 (00:06→13:16)
[2016-12-07] MEDS: PIPERACILLIN/TAZOBACTAM 3,375 MG in SODIUM CHLORIDE 0.9% 100 ML IV SCH ×2 (05:20→13:21)
[2016-12-07] MEDS: DEXTROSE 5% NACL 0.45% 1,000 ML IV SCH ×3 (06:47→15:08)
[2016-12-07] MEDS: DOXYCYCLINE HYCLATE 100 MG CAPSULE PO SCH (09:14)
[2016-12-07] MEDS: PANTOPRAZOLE 40 MG TABLET PO SCH (09:14)
[2016-12-07] MEDS: OXYBUTYNIN 5 MG TABLET PO SCH ×2 (09:14→15:08)
[2016-12-07] MEDS: ENOXAPARIN 40 MG/0.4 ML SYRINGE SUBCUT SCH (09:14)
[2016-12-07] MEDS: SODIUM HYPOCHLORITE 0.25% IRRIG 473 ML BOTTLE TOP SCH (10:30)
[2016-12-07] MEDS: DOCUSATE SODIUM 100 MG CAPSULE PO SCH (10:56)
[2016-12-07 12:07] VITALS: BP 129/67
--- NOTE | 2016-12-07 13:25 | Discharge Summary ---
Hospital Course - Hospital Course Hospital Course: Discharge diagnosis: 1. Urethral cutaneous fistula 2. Right ischial decubitus ulcer stage IV 3. Sacral decubitus ulcer stage III 4. Paraplegia 5. 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 Procedure: Cystoscopy per Dr. Lo Surgeon Dr. Link Adobe Maker Dr. Lo Brief summary: 51-year-old white male who is paraplegic for some 17 years or since age 16 who underwent last year a right hip disarticulation due to necrotizing fasciitis. He has been followed since that time the wound center by Dr. Hollingsworth and has since developed a right ischial decubitus ulcer along with his sacral decubitus ulcer. He showed up in the emergency room because he had the sudden onset of drainage that was increased from the right ischial decubitus ulcer and he noted that there was a drop in the amount of urine that was coming out of his condom catheter. On examination he had this large right ischial decubitus ulcer with some necrotic tissue there and a sacral ulcer. We put him in get a CT scan abdomen pelvis that confirmed that he had a ureteral cutaneous fistula. I will plan on taken to surgery to debride some of that issue ulcer but he refused surgery at that time and wanted to have something done with the fistula. Consulted Dr. Lo and he was uncomfortable dealing with this at this time and felt he needed to be transferred. He had had some ureteral type surgery done many years ago in [place] by Dr. Bautista who unfortunately was now moved to [place]. At that point we made attempts to contact Dr. Bautista group at [facility] but they refused to take him at this time. We then attempted to contact urology at the [place] and they too refused to take him. We were in a difficult situation I did not feel that he could go home with this minor drainage of his going home and will it without some plan for surgical repair in the future. We kept him on some antibiotics to cover the wound and the wound really dramatically improved with no necrotic tissue present good granulating tissue developing in the wound bed itself. He continued to improve over this time as we continue to try to find some place it would accept him for additional evaluation and treatment. We attempted to get him to [facility] and they were not willing to take him and suggested's some unusual treatment that did not seem very practical at this point time or would work for them to be able to manage it at home. At that point Dr. Lo stepped back in and like to taken to surgery and put a tube in the bladder 2 bypasses fistula opening and try to reduce the amount of drainage. This did seem to improve that situation at this time. The hospital and social service continue to work hard to try to find some place for him to go. We were able to finally get in touch with Dr. Bautista in [place] because the family had considered possibility of going there to him. I will see Don though contacted somebody at [facility] who would be willing to see him in the clinic situation at this point time in evaluating for additional surgery. At this point would release to plan in place we will go ahead and discharge him try to follow him up in the wound center and see how we progress with the care of this wound. I have given him special instructions on what is got to do his activities and that he needs to stay off this area as much as possible. 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 Need to do wound care to the initial ulcer twice a day. 2. Sacral ulcer probably only needs to be done once a day. 3. Try to avoid sitting as much as possible. 4. Important to keep the urology clinic visit whenever it is available. Discharge Plan - Discharge Data Disposition: Home Health Service Condition at Discharge: Stable Discharge Diet: advance to your usual diet Activity: other (Avoid any prolonged sitting) Hygiene: may shower Driving: other (No driving) Contact your physician if you experience:: fever over 101, Redness or swelling, Nausea/Vomiting, Shortness of breath, Bleeding, pain uncontrolled by pain medications Wound / Dressing Care Instructions: Wound care orders: Right ischial decubitus ulcer twice daily. 1. Wash with Hibiclens. 2. Irrigate the ulcer with 60 cc of half-strength Dakin solution. 3. Packed the wound with a Dakin's wet Kerlix. 4. Cover with ABD pads. Sacral ulcer daily. Wash with Hibiclens. Irrigate the ulcer with 20 cc of half-strength Dakin solution. Apply Aquacel Ag gauze to the base with a Dakin's wet gauze above and cover with a Mepilex sacral border gauze - Discharge Medications New Doxycycline Hyclate Cap [Vibramycin Cap] 100 mg PO BID #30 capsule Oxybutynin [Ditropan] 5 mg PO TID #30 tablet Acetaminophen Tab [Tylenol Tab] 650 mg PO Q6H PRN tablet PRN Reason: Pain Mild (1-3) And/Or Fever Docusate Sodium Cap [Colace Cap] 100 mg PO BID #60 capsule Sodium Hypochlorite 0.25% Irr [Dakins 1/2 Strength 0.25% Soln] 1 applic TOP DAILY #1000 ml Continue clonazePAM [Clonazepam] 1 mg PO BEDTIME Changed HYDROcodone/ACETAMIN 7.5-325 [Clifford 7.5-325] 1 tablet PO Q8HR PRN #40 PRN Reason: Pain Moderate (4-7) - Follow Up or Referral - Forms/Instructions Instructions: Pressure Ulcer (DC) Exam - Constitutional Vitals: Period Temp Pulse Resp BP Sys/Vera Pulse Ox Last 24 Hr 96.2 F-97.7 F 60-102 12-20 104-158/60-86 94-100 General appearance: mild distress - Head Head exam: Present: normal inspection - ENT ENT exam: Present: normal exam - Neck Neck exam: Present: normal inspection - Respiratory Respiratory exam: Present: rales, rhonchi - Cardiovascular Cardiovascular exam: Present: regular rate and rhythm - GI/Abdominal GI/Abdominal exam: Present: hypoactive bowel sounds, soft, other (Colostomy functioning well). 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 Right hip disarticulation with flap present and an ulcer within the center part of the flap. There is a ischial decubitus ulcer present with good granulating tissue present on the right side within this hip disarticulation flap. The ulcer extends pretty close to the anal area at this time.) - Back Exam Back exam: Present: other (Has a sacral decubitus ulcer that has good granulating base generally is a stage III) - Neurological Exam Neurological exam: Present: alert, oriented X3, CN II-XII intact - Psychiatric Psychiatric exam: Present: normal affect, normal mood, anxious, depressed - Skin Skin exam: Present: normal color, warm, dry DS: Provider Date of admission: 11/24/16 12:28 Primary care physician: . No PCP Attending physician on admission: Puneet Link MD Consults: 11/24/16 14:54 Consult to Physician [CONS] Routine Comment: Consulting Provider: Levar Lo Consulting Provider Notified: Yes When should Consulting Provider be notified: Now Consult to Specialist Group: Urology When should Consulting Provider be notified: Now Person Notified: peppy called Date Notified: 11/24/16 Time Notified: 15:44 Consult Notification Comment: Paraplegic with ischeal ulcer and a fistula from the bladder to the ulcer 11/27/16 12:03 Consult to Pharmacy [CONS] Routine Reason for Pharmacy Consult: Dose/Manage Vancomycin 11/29/16 07:19 Consult to Physician [CONS] Routine Comment: Consulting Provider: Levar Lo Consulting Provider Notified: Yes When should Consulting Provider be notified: Now Person Notified: michel called Date Notified: 11/29/16 Time Notified: 08:41 Consult Notification Comment: Unable to get Urology at [facility] to accept patient in transfer. Can you help. elizabeth and case planner are working on transfer to [facility] 12/02/16 08:04 Consult to Wound Care [facility] [CONS] Routine Reason for Wound Care: Wound Care Management Consult Comment: ischeal and sacral ulcers with bladder fistula 12/02/16 13:31 Consult to Physician [CONS] Routine Comment: Consulting Provider: Levar Lo Consulting Provider Notified: Yes When should Consulting Provider be notified: Now Person Notified: dr. levar lo Date Notified: 12/02/16 Time Notified: 13:32 Consult Notification Comment: will pick back up 12/05/16 08:07 Consult to Case Mgmt/Social Srvs [CONS] Routine Reason for Case Mgmt/Social Srvs: Discharge Planning Consult Comment: Arrange a urology clinic appointment at [facility] Discharging clinician: Puneet Link MD Expected date of discharge: 12/07/16
== END 2016-12-07 15:44 | disposition home health service (06) | DRG 592 ==
LOC: EDUNIT# → EDBD → N.ED 11:56 → N.EDINP 12:28 → N.3E 14:41
PROVIDERS: ADMIT Specialist; ATTEND Specialist

== ENCOUNTER 2020-01-13 13:10 | Inpatient (IN) ==
[2020-01-13] MEDS ORDERED: SODIUM CHLORIDE 0.9% 1,000 ML IV STA (13:49)
[2020-01-13 14:12] LABS: Alanine Aminotransferase 12 U/L (16-61); Albumin 1.6 G/DL (3.4-5.0); Alkaline Phosphatase 121 U/L (45-117); Amylase 45 U/L (25-115); Aspartate Amino Transferase 11 U/L (0-37); Basophils % 0.2 % (0.0-0.8); Bilirubin,Total < 0.39 MG/DL (0.2-1.0); Blood Urea Nitrogen 16 MG/DL (7-18); Calcium 8.5 MG/DL (8.5-10.1); Eosinophils # 0.1 10*3/uL (0.0-0.87); Eosinophils % 1.1 % (0.00-10.9); Glucose 90 MG/DL (74-106); Hematocrit 30.5 VOL% (42.0-52.0); Hemoglobin 8.3 GM/DL (14.0-18.0); Immature Granulocytes % 0.6 %; Immature Granulocytes Absolute 0.05 #; Lymphocytes # 0.7 10*3/uL (1.4-4.0); Lymphocytes % 8.4 % (21.2-54.2); Mean Corpuscular HGB Conc 27.2 GM/DL (32-36); Mean Corpuscular Volume 79.4 FL (87-102); Mean Platelet Volume 8.9 FL (9.6-12.0); Monocytes % 9.4 % (1.7-12.7); Neutrophils % 80.3 % (38.7-73.9); Osmolality,Calculated 275.7 MOS/KG (273-304); Platelet Count 451 T/CUMM (130-400); Red Blood Count 3.84 MC/CUMM (3.8-5.5); Red Cell Distribution Width 19.7 % (9.3-17.3); Total Protein 7.5 G/DL (6.4-8.3); White Blood Count 8.9 T/CUMM (4-12)
[2020-01-13 14:14] LABS: Estimated Glom Filtration Rate 0 ML/MIN
[2020-01-13 14:20] LABS: Apearance,Urine CLOUDY (Clear); Bilirubin,Urine Negative (Negative); Blood, Urine Small mg/dL (Negative); Glucose,Urine (UA) Negative (Negative); Ketones,Urine Negative (Negative); Mucus,Urine Occasional /LPF (Occasional); Nitrite,Urine Positive (Negative); Protein,Urine 100 MG/DL; RBC,Urine 11 /HPF (0-4); Squamous Epithelial Cell,Urine Occasional /HPF (0-10); Urine Specific Gravity 1.017 (1.001-1.035); Urine Urobilinogen < 2.0 EU/DL (0.2-1.0); WBC,Urine 465 /HPF (0-6)
[2020-01-13 14:21] LABS: Urine Color Yellow (Yellow)
[2020-01-13] MEDS ORDERED: LEVOFLOXACIN INJ 750 MG in PREMIX 1 EACH IV STA (16:37)
[2020-01-13] MEDS ORDERED: ACETAMINOPHEN 325 MG TABLET PO PRN (17:09)
[2020-01-13] MEDS ORDERED: GLUCAGON 1 MG VIAL IM PRN (17:09)
[2020-01-13] MEDS ORDERED: DEXTROSE 50% 25 GM/50 ML VIAL IV PRN (17:09)
[2020-01-13] MEDS ORDERED: ONDANSETRON 4 MG/2 ML VIAL IV PRN (17:09)
[2020-01-13] MEDS ORDERED: ENOXAPARIN 40 MG/0.4 ML SYRINGE SUBCUT SCH (18:00)
[2020-01-13] MEDS ORDERED: carvediloL 12.5 MG TABLET PO SCH (21:00)
[2020-01-13] MEDS: HEPARIN 5,000 UNIT/1 ML VIAL SUBCUT SCH (22:04)
[2020-01-13] MEDS: PIPERACILLIN/TAZOBACTAM 3,375 MG in SODIUM CHLORIDE 0.9% 100 ML IV SCH (22:04)
[2020-01-13] MEDS: SODIUM CHLORIDE 0.9% 1,000 ML IV SCH (22:05)
[2020-01-14] MEDS: PIPERACILLIN/TAZOBACTAM 3,375 MG in SODIUM CHLORIDE 0.9% 100 ML IV SCH ×3 (05:24→20:53)
[2020-01-14 06:08] LABS: Basophils % 0.3 % (0.0-0.8); Eosinophils # 0.1 10*3/uL (0.0-0.87); Eosinophils % 1.7 % (0.00-10.9); Hematocrit 25.3 VOL% (42.0-52.0); Immature Granulocytes % 0.6 %; Immature Granulocytes Absolute 0.04 #; Lymphocytes # 0.9 10*3/uL (1.4-4.0); Lymphocytes % 12.4 % (21.2-54.2); Mean Corpuscular HGB Conc 27.3 GM/DL (32-36); Mean Corpuscular Volume 80.8 FL (87-102); Mean Platelet Volume 9.1 FL (9.6-12.0); Monocytes % 12.4 % (1.7-12.7); Neutrophils % 72.6 % (38.7-73.9); Platelet Count 342 T/CUMM (130-400); Red Blood Count 3.13 MC/CUMM (3.8-5.5); Red Cell Distribution Width 19.7 % (9.3-17.3); White Blood Count 7.1 T/CUMM (4-12)
[2020-01-14 06:23] LABS: Calcium 8.5 MG/DL (8.5-10.1); Osmolality,Calculated 279.4 MOS/KG (273-304)
[2020-01-14 06:36] LABS: Hemoglobin 6.9 GM/DL (14.0-18.0)
[2020-01-14 06:41] LABS: Hypochromasia 1+; Platelet Estimate Adequate
[2020-01-14 06:42] LABS: Microcytosis Slight
[2020-01-14] MEDS: OXYBUTYNIN XL 15 MG TABLET PO SCH (08:39)
[2020-01-14] MEDS: SODIUM CHLORIDE 0.9% 1,000 ML IV SCH ×2 (08:39→17:19)
[2020-01-14] MEDS: HEPARIN 5,000 UNIT/1 ML VIAL SUBCUT SCH ×2 (08:39→20:52)
[2020-01-14] MEDS ORDERED: DEXTROSE 50% 25 GM/50 ML VIAL IV PRN (10:20)
[2020-01-14] MEDS ORDERED: GLUCAGON 1 MG VIAL IM PRN (10:20)
[2020-01-14 14:12] LABS: Hematocrit 27.1 VOL% (42.0-52.0); Hemoglobin 7.2 GM/DL (14.0-18.0)
[2020-01-14] MEDS ORDERED: SODIUM CHLORIDE 0.9% 1,000 ML IV PRN (14:30)
[2020-01-14] MEDS ORDERED: MENTHOL/ZINC OXIDE OINT 71 GM JAR TOP PRN (16:59)
[2020-01-14] MEDS ORDERED: LEVOFLOXACIN INJ 750 MG in PREMIX 1 EACH IV SCH (17:30)
[2020-01-14] MEDS: traMADol 50 MG TABLET PO SCH (18:18)
[2020-01-14] MEDS: ACETIC ACID 0.25% IRRIGATION 1,000 ML BOTTLE IRRIG SCH (20:52)
[2020-01-14] MEDS: GABAPENTIN 300 MG CAPSULE PO SCH (20:52)
[2020-01-15] MEDS: traMADol 50 MG TABLET PO SCH ×3 (02:24→17:38)
[2020-01-15] MEDS: PIPERACILLIN/TAZOBACTAM 3,375 MG in SODIUM CHLORIDE 0.9% 100 ML IV SCH ×2 (05:29→12:14)
[2020-01-15 06:05] LABS: Calcium 8.6 MG/DL (8.5-10.1); Osmolality,Calculated 284.8 MOS/KG (273-304)
[2020-01-15 06:52] LABS: Basophils % 0.3 % (0.0-0.8); Eosinophils # 0.2 10*3/uL (0.0-0.87); Eosinophils % 2.7 % (0.00-10.9); Hematocrit 25.4 VOL% (42.0-52.0); Immature Granulocytes Absolute 0.06 #; Mean Corpuscular HGB Conc 26.8 GM/DL (32-36); Mean Corpuscular Volume 82.2 FL (87-102); Monocytes % 9.7 % (1.7-12.7); Neutrophils % 69.3 % (38.7-73.9); Platelet Count 363 T/CUMM (130-400); Red Blood Count 3.09 MC/CUMM (3.8-5.5); Red Cell Distribution Width 19.9 % (9.3-17.3)
[2020-01-15 06:53] LABS: Hemoglobin 6.8 GM/DL (14.0-18.0)
[2020-01-15] MEDS: SODIUM CHLORIDE 0.9% 1,000 ML IV SCH ×2 (07:25→12:13)
[2020-01-15] MEDS: OXYBUTYNIN XL 15 MG TABLET PO SCH (09:45)
[2020-01-15] MEDS: GABAPENTIN 300 MG CAPSULE PO SCH ×3 (09:45→20:43)
[2020-01-15] MEDS: ACETIC ACID 0.25% IRRIGATION 1,000 ML BOTTLE IRRIG SCH ×2 (09:45→20:46)
[2020-01-15] MEDS: HEPARIN 5,000 UNIT/1 ML VIAL SUBCUT SCH ×2 (09:45→20:45)
[2020-01-15] MEDS: CEFEPIME 1,000 MG in SODIUM CHLORIDE 0.9% 100 ML IV SCH ×2 (15:30→20:47)
[2020-01-15 19:50] LABS: Hematocrit 34.7 VOL% (42.0-52.0)
[2020-01-15 19:51] LABS: Hemoglobin 9.5 GM/DL (14.0-18.0)
[2020-01-16] MEDS: SODIUM CHLORIDE 0.9% 1,000 ML IV SCH (02:32)
[2020-01-16] MEDS: traMADol 50 MG TABLET PO SCH ×3 (02:50→18:35)
[2020-01-16] MEDS: CEFEPIME 1,000 MG in SODIUM CHLORIDE 0.9% 100 ML IV SCH ×4 (02:54→22:02)
[2020-01-16 04:10] LABS: Osmolality,Calculated 273.5 MOS/KG (273-304)
[2020-01-16 04:39] LABS: Basophils % 0.2 % (0.0-0.8); Eosinophils # 0.2 10*3/uL (0.0-0.87); Eosinophils % 3.2 % (0.00-10.9); Hematocrit 31.3 VOL% (42.0-52.0); Hemoglobin 8.8 GM/DL (14.0-18.0); Immature Granulocytes % 0.7 %; Immature Granulocytes Absolute 0.04 #; Lymphocytes # 0.9 10*3/uL (1.4-4.0); Lymphocytes % 15.9 % (21.2-54.2); Mean Corpuscular HGB Conc 28.1 GM/DL (32-36); Mean Corpuscular Volume 83.2 FL (87-102); Mean Platelet Volume 8.9 FL (9.6-12.0); Monocytes % 8.3 % (1.7-12.7); Neutrophils % 71.7 % (38.7-73.9); Platelet Count 361 T/CUMM (130-400); Red Blood Count 3.76 MC/CUMM (3.8-5.5); Red Cell Distribution Width 19.8 % (9.3-17.3); White Blood Count 5.5 T/CUMM (4-12)
[2020-01-16 04:55] LABS: Anisocytosis 1+; Hypochromasia 1+; Microcytosis 1+; Platelet Estimate Normal
[2020-01-16] MEDS: HEPARIN 5,000 UNIT/1 ML VIAL SUBCUT SCH ×2 (09:40→22:02)
[2020-01-16] MEDS: OXYBUTYNIN XL 15 MG TABLET PO SCH (09:43)
[2020-01-16] MEDS: GABAPENTIN 300 MG CAPSULE PO SCH ×3 (09:43→22:02)
[2020-01-16] MEDS: ACETIC ACID 0.25% IRRIGATION 1,000 ML BOTTLE IRRIG SCH ×2 (12:47→22:17)
[2020-01-17] MEDS: SODIUM CHLORIDE 0.9% 1,000 ML IV SCH ×4 (00:49→21:49)
[2020-01-17] MEDS: CEFEPIME 1,000 MG in SODIUM CHLORIDE 0.9% 100 ML IV SCH ×4 (02:36→21:42)
[2020-01-17] MEDS: traMADol 50 MG TABLET PO SCH ×3 (02:36→18:05)
[2020-01-17 05:54] LABS: Calcium 8.1 MG/DL (8.5-10.1); Osmolality,Calculated 275.4 MOS/KG (273-304)
[2020-01-17 06:02] LABS: Basophils % 0.2 % (0.0-0.8); Eosinophils # 0.2 10*3/uL (0.0-0.87); Eosinophils % 4.2 % (0.00-10.9); Hematocrit 31.1 VOL% (42.0-52.0); Hemoglobin 8.7 GM/DL (14.0-18.0); Immature Granulocytes % 0.6 %; Immature Granulocytes Absolute 0.03 #; Lymphocytes # 0.8 10*3/uL (1.4-4.0); Lymphocytes % 16.3 % (21.2-54.2); Mean Corpuscular Volume 83.8 FL (87-102); Mean Platelet Volume 8.6 FL (9.6-12.0); Monocytes % 9.3 % (1.7-12.7); Neutrophils % 69.4 % (38.7-73.9); Platelet Count 338 T/CUMM (130-400); Red Blood Count 3.71 MC/CUMM (3.8-5.5); Red Cell Distribution Width 19.9 % (9.3-17.3); White Blood Count 4.7 T/CUMM (4-12)
[2020-01-17 06:32] LABS: Hypochromasia 1+; Microcytosis Slight
[2020-01-17] MEDS: GABAPENTIN 300 MG CAPSULE PO SCH ×3 (10:21→21:42)
[2020-01-17] MEDS: OXYBUTYNIN XL 15 MG TABLET PO SCH (10:21)
[2020-01-17] MEDS: HEPARIN 5,000 UNIT/1 ML VIAL SUBCUT SCH ×2 (10:23→21:40)
[2020-01-17] MEDS: ACETIC ACID 0.25% IRRIGATION 1,000 ML BOTTLE IRRIG SCH ×2 (12:47→21:11)
[2020-01-18] MEDS: SODIUM CHLORIDE 0.9% 1,000 ML IV SCH ×3 (02:20→21:50)
[2020-01-18] MEDS: traMADol 50 MG TABLET PO SCH ×3 (02:20→17:32)
[2020-01-18] MEDS: CEFEPIME 1,000 MG in SODIUM CHLORIDE 0.9% 100 ML IV SCH ×4 (02:21→21:50)
[2020-01-18] MEDS: ACETIC ACID 0.25% IRRIGATION 1,000 ML BOTTLE IRRIG SCH ×2 (08:39→21:49)
[2020-01-18] MEDS: GABAPENTIN 300 MG CAPSULE PO SCH ×3 (10:55→21:51)
[2020-01-18] MEDS: OXYBUTYNIN XL 15 MG TABLET PO SCH (10:55)
[2020-01-18] MEDS: HEPARIN 5,000 UNIT/1 ML VIAL SUBCUT SCH ×2 (11:01→21:51)
[2020-01-19] MEDS: traMADol 50 MG TABLET PO SCH ×3 (03:33→18:26)
[2020-01-19] MEDS: CEFEPIME 1,000 MG in SODIUM CHLORIDE 0.9% 100 ML IV SCH ×4 (03:33→22:38)
[2020-01-19 05:32] LABS: Calcium 7.7 MG/DL (8.5-10.1); Osmolality,Calculated 280.3 MOS/KG (273-304)
[2020-01-19 05:52] LABS: Basophils % 0.4 % (0.0-0.8); Eosinophils # 0.2 10*3/uL (0.0-0.87); Eosinophils % 4.6 % (0.00-10.9); Hematocrit 32.2 VOL% (42.0-52.0); Immature Granulocytes % 0.9 %; Immature Granulocytes Absolute 0.04 #; Lymphocytes # 0.8 10*3/uL (1.4-4.0); Lymphocytes % 17.8 % (21.2-54.2); Mean Corpuscular HGB Conc 28.3 GM/DL (32-36); Mean Corpuscular Volume 83.4 FL (87-102); Mean Platelet Volume 8.6 FL (9.6-12.0); Monocytes % 9.4 % (1.7-12.7); Neutrophils % 66.9 % (38.7-73.9); Platelet Count 315 T/CUMM (130-400); Red Blood Count 3.86 MC/CUMM (3.8-5.5); Red Cell Distribution Width 20.3 % (9.3-17.3); White Blood Count 4.6 T/CUMM (4-12)
[2020-01-19 05:55] LABS: Hemoglobin 9.1 GM/DL (14.0-18.0)
[2020-01-19 06:05] LABS: Microcytosis Slight; Platelet Estimate Normal
[2020-01-19] MEDS: SODIUM CHLORIDE 0.9% 1,000 ML IV SCH ×2 (07:47→18:27)
[2020-01-19] MEDS: HEPARIN 5,000 UNIT/1 ML VIAL SUBCUT SCH ×2 (09:01→22:37)
[2020-01-19] MEDS: OXYBUTYNIN XL 15 MG TABLET PO SCH (09:01)
[2020-01-19] MEDS: ACETIC ACID 0.25% IRRIGATION 1,000 ML BOTTLE IRRIG SCH ×2 (09:01→22:38)
[2020-01-19] MEDS: GABAPENTIN 300 MG CAPSULE PO SCH ×3 (09:01→22:38)
[2020-01-20] MEDS: traMADol 50 MG TABLET PO SCH ×3 (03:37→17:49)
[2020-01-20] MEDS: SODIUM CHLORIDE 0.9% 1,000 ML IV SCH ×2 (05:00→16:08)
[2020-01-20] MEDS: CEFEPIME 1,000 MG in SODIUM CHLORIDE 0.9% 100 ML IV SCH ×4 (05:01→21:27)
[2020-01-20 05:33] LABS: Calcium 8.2 MG/DL (8.5-10.1); Osmolality,Calculated 275.5 MOS/KG (273-304)
[2020-01-20 05:41] LABS: Basophils % 0.2 % (0.0-0.8); Eosinophils # 0.2 10*3/uL (0.0-0.87); Eosinophils % 3.9 % (0.00-10.9); Hematocrit 34.8 VOL% (42.0-52.0); Hemoglobin 9.5 GM/DL (14.0-18.0); Immature Granulocytes % 0.9 %; Immature Granulocytes Absolute 0.05 #; Lymphocytes # 0.8 10*3/uL (1.4-4.0); Lymphocytes % 13.8 % (21.2-54.2); Mean Corpuscular HGB Conc 27.3 GM/DL (32-36); Mean Corpuscular Volume 82.5 FL (87-102); Mean Platelet Volume 8.8 FL (9.6-12.0); Monocytes % 9.6 % (1.7-12.7); Neutrophils % 71.6 % (38.7-73.9); Platelet Count 314 T/CUMM (130-400); Red Blood Count 4.22 MC/CUMM (3.8-5.5); Red Cell Distribution Width 20.8 % (9.3-17.3); White Blood Count 5.4 T/CUMM (4-12)
[2020-01-20 06:05] LABS: Hypochromasia 1+; Microcytosis 1+; Spherocytes Slight
[2020-01-20 06:06] LABS: Platelet Estimate Normal; Polychromasia Slight
[2020-01-20] MEDS: HEPARIN 5,000 UNIT/1 ML VIAL SUBCUT SCH ×2 (09:42→21:27)
[2020-01-20] MEDS: ACETIC ACID 0.25% IRRIGATION 1,000 ML BOTTLE IRRIG SCH ×2 (09:42→21:28)
[2020-01-20] MEDS: OXYBUTYNIN XL 15 MG TABLET PO SCH (09:43)
[2020-01-20] MEDS: GABAPENTIN 300 MG CAPSULE PO SCH ×3 (09:43→21:26)
[2020-01-21] MEDS: SODIUM CHLORIDE 0.9% 1,000 ML IV SCH ×4 (02:59→18:02)
[2020-01-21] MEDS: traMADol 50 MG TABLET PO SCH ×2 (03:45→09:45)
[2020-01-21] MEDS: CEFEPIME 1,000 MG in SODIUM CHLORIDE 0.9% 100 ML IV SCH ×4 (03:45→20:50)
[2020-01-21 05:00] LABS: Calcium 7.9 MG/DL (8.5-10.1); Osmolality,Calculated 277.5 MOS/KG (273-304)
[2020-01-21 05:02] LABS: Basophils % 0.2 % (0.0-0.8); Eosinophils # 0.2 10*3/uL (0.0-0.87); Eosinophils % 3.8 % (0.00-10.9); Hematocrit 32.3 VOL% (42.0-52.0); Hemoglobin 9.1 GM/DL (14.0-18.0); Immature Granulocytes % 0.6 %; Immature Granulocytes Absolute 0.03 #; Lymphocytes # 0.7 10*3/uL (1.4-4.0); Mean Corpuscular HGB Conc 28.2 GM/DL (32-36); Mean Corpuscular Volume 82.2 FL (87-102); Mean Platelet Volume 8.6 FL (9.6-12.0); Monocytes % 8.4 % (1.7-12.7); Platelet Count 286 T/CUMM (130-400); Red Blood Count 3.93 MC/CUMM (3.8-5.5); Red Cell Distribution Width 20.7 % (9.3-17.3); White Blood Count 4.8 T/CUMM (4-12)
[2020-01-21 05:20] LABS: Hypochromasia 1+; Microcytosis 1+; Platelet Estimate Adequate
[2020-01-21] MEDS: ACETIC ACID 0.25% IRRIGATION 1,000 ML BOTTLE IRRIG SCH ×2 (08:44→21:05)
[2020-01-21] MEDS: GABAPENTIN 300 MG CAPSULE PO SCH ×3 (09:46→20:50)
[2020-01-21] MEDS: OXYBUTYNIN XL 15 MG TABLET PO SCH (09:46)
[2020-01-21] MEDS: HEPARIN 5,000 UNIT/1 ML VIAL SUBCUT SCH ×2 (09:46→20:51)
[2020-01-22] MEDS: SODIUM CHLORIDE 0.9% 1,000 ML IV SCH (02:01)
[2020-01-22] MEDS: CEFEPIME 1,000 MG in SODIUM CHLORIDE 0.9% 100 ML IV SCH ×2 (04:06→09:48)
[2020-01-22] MEDS ORDERED: LEVOFLOXACIN 500 MG TABLET PO SCH (09:00)
[2020-01-22] MEDS: HEPARIN 5,000 UNIT/1 ML VIAL SUBCUT SCH (09:48)
[2020-01-22] MEDS: GABAPENTIN 300 MG CAPSULE PO SCH (09:48)
[2020-01-22] MEDS: OXYBUTYNIN XL 15 MG TABLET PO SCH (09:48)
[2020-01-22] MEDS: ACETIC ACID 0.25% IRRIGATION 1,000 ML BOTTLE IRRIG SCH (11:00)
[2020-01-22 11:07] VITALS: BP 121/79
== END 2020-01-22 14:42 | disposition home health service (06) | DRG 698 ==
LOC: N.ED 13:10 → N.EDINP 17:09 → SUATTDRO 17:09 → N.TELEN 19:17
PROVIDERS: ADMIT Internal Medicine; ATTEND Internal Medicine

== ENCOUNTER 2020-03-02 19:01 | Inpatient (IN) ==
[2020-03-02 20:22] LABS: INR 1.9; PT Patient Result 19.8 SECS (9.8-11.9); Partial Thromboplastin Time 34.4 SECS (23.9-33.8)
[2020-03-02 20:43] LABS: Basophils # 0.1 10*3/uL (0.0-0.2); Basophils % 0.3 % (0.0-0.8); Hematocrit 35.1 VOL% (42.0-52.0); Hemoglobin 10.1 GM/DL (14.0-18.0); Immature Granulocytes % 4.8 %; Immature Granulocytes Absolute 0.73 #; Lymphocytes # 0.7 10*3/uL (1.4-4.0); Lymphocytes % 4.3 % (21.2-54.2); Mean Corpuscular HGB Conc 28.8 GM/DL (32-36); Mean Corpuscular Volume 78.7 FL (87-102); Mean Platelet Volume 8.9 FL (9.6-12.0); Monocytes % 6.6 % (1.7-12.7); NRBC # 0.03 10*3/uL; Platelet Count 341 T/CUMM (130-400); Red Blood Count 4.46 MC/CUMM (3.8-5.5); Red Cell Distribution Width 20.9 % (9.3-17.3); White Blood Count 15.2 T/CUMM (4-12)
[2020-03-02 20:52] LABS: Alanine Aminotransferase 26 U/L (16-61); Alkaline Phosphatase 196 U/L (45-117); Aspartate Amino Transferase 26 U/L (0-37); Blood Urea Nitrogen 44 MG/DL (7-18); Calcium 7.9 MG/DL (8.5-10.1); Estimated Glom Filtration Rate 21 ML/MIN; Osmolality,Calculated 273.4 MOS/KG (273-304); Total Protein 6.8 G/DL (6.4-8.3)
[2020-03-02 20:59] LABS: Glucose 49 MG/DL (74-106)
[2020-03-02 21:30] LABS: Lymphocytes 7 % (20-55); Segmented Neutrophils 86 % (50-85); Total Cells Counted 100
[2020-03-02] MEDS ORDERED: DEXTROSE 50% 25 GM/50 ML SYRINGE IV ONE ×2 (21:58→22:13)
[2020-03-02] MEDS ORDERED: fentaNYL 100 MCG/2 ML VIAL IV STA (22:01)
[2020-03-02] MEDS ORDERED: SODIUM CHLORIDE 0.9% 1,000 ML IV STA (22:56)
[2020-03-03 01:16] LABS: Bilirubin,Urine Negative (Negative); Blood, Urine Small mg/dL (Negative); Glucose,Urine (UA) Negative (Negative); Ketones,Urine Negative (Negative); Mucus,Urine Occasional /LPF (Occasional); Nitrite,Urine Negative (Negative); Protein,Urine 100 MG/DL; RBC,Urine 23 /HPF (0-4); Squamous Epithelial Cell,Urine Occasional /HPF (0-10); Urine Appearance CLOUDY (Clear); Urine Color Yellow (Yellow); Urine Specific Gravity 1.018 (1.001-1.035); Urine Urobilinogen < 2.0 EU/DL (0.2-1.0); WBC,Urine 1071 /HPF (0-6)
[2020-03-03] MEDS ORDERED: CEFEPIME 1,000 MG in SODIUM CHLORIDE 0.9% 100 ML IV STA (01:49)
[2020-03-03] MEDS ORDERED: DEXTROSE 5% NACL 0.45% 1,000 ML IV SCH (02:00)
[2020-03-03] MEDS ORDERED: SODIUM CHLORIDE 0.9% 1,500 ML IV STA (04:29)
[2020-03-03] MEDS ORDERED: HYDROmorphone 2 MG/1 ML VIAL IV STA (04:46)
[2020-03-03] MEDS ORDERED: GLUCAGON 1 MG VIAL IM PRN (04:59)
[2020-03-03] MEDS ORDERED: DEXTROSE 50% 25 GM/50 ML VIAL IV PRN (04:59)
[2020-03-03] MEDS ORDERED: DOCUSATE SODIUM 100 MG CAPSULE PO PRN (04:59)
[2020-03-03] MEDS ORDERED: ONDANSETRON 4 MG/2 ML VIAL IV PRN (04:59)
[2020-03-03] MEDS ORDERED: ACETAMINOPHEN 325 MG TABLET PO PRN (04:59)
[2020-03-03] MEDS ORDERED: VANCOMYCIN INJ 1,250 MG in SODIUM CHLORIDE 0.9% 250 ML IV PRN (05:00)
[2020-03-03] MEDS: HYDROmorphone 2 MG/1 ML VIAL IV PRN ×4 (05:01→23:16)
[2020-03-03] MEDS ORDERED: DEXTROSE 50% 25 GM/50 ML SYRINGE IV PRN (05:06)
[2020-03-03] MEDS ORDERED: VANCOMYCIN INJ 2,000 MG in SODIUM CHLORIDE 0.9% 500 ML IV ONE (06:00)
[2020-03-03] MEDS: SODIUM BICARB INJ 50 MEQ in DEXTROSE 5% 1,000 ML IV SCH ×3 (06:22→15:59)
[2020-03-03] MEDS ORDERED: NOREPINEPHRINE 4 MG/4 ML VIAL IV ONE (06:43)
[2020-03-03] MEDS: NOREPINEPHRINE 8 MG in SODIUM CHLORIDE 0.9% 242 ML IV PRN ×2 (06:48→13:16)
[2020-03-03] MEDS ORDERED: INFLUENZA VIRUS VACCINE 0.5 ML SYRINGE IM ONE (06:59)
[2020-03-03 07:06] LABS: Basophils # 0.1 10*3/uL (0.0-0.2); Basophils % 0.4 % (0.0-0.8); Hemoglobin 8.4 GM/DL (14.0-18.0); Immature Granulocytes % 2.7 %; Immature Granulocytes Absolute 0.36 #; Lymphocytes # 0.6 10*3/uL (1.4-4.0); Lymphocytes % 4.5 % (21.2-54.2); Mean Corpuscular Volume 78.6 FL (87-102); Mean Platelet Volume 9.3 FL (9.6-12.0); NRBC # 0.03 10*3/uL; Neutrophils % 85.4 % (38.7-73.9); Platelet Count 247 T/CUMM (130-400); Red Blood Count 3.69 MC/CUMM (3.8-5.5); Red Cell Distribution Width 20.7 % (9.3-17.3); White Blood Count 13.2 T/CUMM (4-12)
[2020-03-03] MEDS ORDERED: HYDROCORTISONE 100 MG VIAL ONE (07:09)
[2020-03-03] MEDS ORDERED: HYDROCORTISONE 100 MG VIAL IV ONE (07:11)
[2020-03-03 07:31] LABS: Albumin 0.9 G/DL (3.4-5.0); Bilirubin,Total 0.7 MG/DL (0.2-1.0); Osmolality,Calculated 282.8 MOS/KG (273-304); Total Protein 5.7 G/DL (6.4-8.3)
[2020-03-03 07:32] LABS: Band Neutrophils 4 % (0-10); Lymphocytes 3 % (20-55); Platelet Estimate Adequate; Segmented Neutrophils 83 % (50-85); Total Cells Counted 100
[2020-03-03 07:33] LABS: Hypochromasia 1+
[2020-03-03 07:34] LABS: Microcytosis 1+
[2020-03-03] MEDS ORDERED: ceFAZolin 1,000 MG in SYRINGE 1 EACH IV ONE (09:17)
[2020-03-03] MEDS: CEFEPIME 1,000 MG in SODIUM CHLORIDE 0.9% 100 ML IV SCH ×2 (09:49→20:51)
[2020-03-03] MEDS ORDERED: ETOMIDATE 40 MG/20 ML VIAL IV ONE (12:51)
[2020-03-03 13:23] VITALS: BP 125/62
[2020-03-03 15:58] LABS: Basophils # 0.1 10*3/uL (0.0-0.2); Basophils % 0.5 % (0.0-0.8); Hematocrit 28.9 VOL% (42.0-52.0); Hemoglobin 8.4 GM/DL (14.0-18.0); Immature Granulocytes % 0.5 %; Immature Granulocytes Absolute 0.11 #; Lymphocytes # 0.6 10*3/uL (1.4-4.0); Lymphocytes % 2.7 % (21.2-54.2); Mean Corpuscular HGB Conc 29.1 GM/DL (32-36); Mean Corpuscular Volume 77.7 FL (87-102); Mean Platelet Volume 8.9 FL (9.6-12.0); NRBC # 0.02 10*3/uL; Neutrophils % 92.3 % (38.7-73.9); Platelet Count 295 T/CUMM (130-400); Red Blood Count 3.72 MC/CUMM (3.8-5.5); Red Cell Distribution Width 20.7 % (9.3-17.3); White Blood Count 20.7 T/CUMM (4-12)
[2020-03-03 16:06] LABS: INR 2.2; PT Patient Result 22.3 SECS (9.8-11.9)
[2020-03-03 16:21] LABS: Albumin 0.8 G/DL (3.4-5.0); Bilirubin,Total 0.6 MG/DL (0.2-1.0); Calcium 6.9 MG/DL (8.5-10.1); Osmolality,Calculated 278.7 MOS/KG (273-304); Total Protein 5.7 G/DL (6.4-8.3)
[2020-03-03 16:25] LABS: Band Neutrophils 4 % (0-10); Lymphocytes 4 % (20-55); Platelet Estimate Adequate; Segmented Neutrophils 90 % (50-85); Total Cells Counted 100
[2020-03-03 16:28] LABS: Hypochromasia 1+
[2020-03-03 16:30] LABS: Microcytosis 1+
[2020-03-03] MEDS: HYDROCORTISONE 100 MG VIAL IV SCH (16:36)
[2020-03-03] MEDS: NOREPINEPHRINE 16 MG in SODIUM CHLORIDE 0.9% 234 ML IV PRN (16:40)
[2020-03-03] MEDS: ALBUTEROL/IPRATROPIUM 3 ML NEB RESP TX SCH (19:11)
[2020-03-03] MEDS: SODIUM BICARB INJ 100 MEQ in DEXTROSE 5% NACL 0.9% 1,000 ML IV SCH (20:51)
[2020-03-04] MEDS: HYDROCORTISONE 100 MG VIAL IV SCH (01:26)
[2020-03-04] MEDS: ALBUTEROL/IPRATROPIUM 3 ML NEB RESP TX SCH ×2 (01:48→08:32)
[2020-03-04] MEDS: HYDROmorphone 2 MG/1 ML VIAL IV PRN ×2 (03:19→07:00)
[2020-03-04 03:24] LABS: Basophils % 0.2 % (0.0-0.8); Hematocrit 30.2 VOL% (42.0-52.0); Hemoglobin 8.9 GM/DL (14.0-18.0); Immature Granulocytes % 0.6 %; Immature Granulocytes Absolute 0.08 #; Lymphocytes # 0.5 10*3/uL (1.4-4.0); Lymphocytes % 3.7 % (21.2-54.2); Mean Corpuscular HGB Conc 29.5 GM/DL (32-36); Mean Corpuscular Volume 77.8 FL (87-102); Mean Platelet Volume 8.7 FL (9.6-12.0); Monocytes % 3.5 % (1.7-12.7); NRBC # 0.03 10*3/uL; Platelet Count 251 T/CUMM (130-400); Red Blood Count 3.88 MC/CUMM (3.8-5.5); Red Cell Distribution Width 20.4 % (9.3-17.3); White Blood Count 13.8 T/CUMM (4-12)
[2020-03-04 03:48] LABS: Band Neutrophils 2 % (0-10); Hypochromasia Slight; Lymphocytes 2 % (20-55); Microcytosis Slight; Platelet Estimate Normal; Segmented Neutrophils 96 % (50-85); Total Cells Counted 100
[2020-03-04 03:54] LABS: Albumin 0.8 G/DL (3.4-5.0); Bilirubin,Total 0.4 MG/DL (0.2-1.0); Calcium 6.9 MG/DL (8.5-10.1); Osmolality,Calculated 283.2 MOS/KG (273-304); Total Protein 5.6 G/DL (6.4-8.3)
[2020-03-04] MEDS: NOREPINEPHRINE 16 MG in SODIUM CHLORIDE 0.9% 234 ML IV PRN (04:48)
[2020-03-04] MEDS: SODIUM BICARB INJ 100 MEQ in DEXTROSE 5% NACL 0.9% 1,000 ML IV SCH (08:09)
[2020-03-04] MEDS ORDERED: MORPHINE 4 MG/1 ML VIAL IV SCH (08:30)
== END 2020-03-04 09:25 | disposition expired | DRG 853 ==
LOC: EDBD → EDUNIT# → N.ED 19:01 → N.EDINP 03-03 04:30 → SUATTDRO 03-03 04:30 → N.ICU 03-03 05:57
PROVIDERS: ADMIT Family Medicine; ATTEND Internal Medicine